=== PATIENT | male | born 1955 | race Caucasian/White ===

== ENCOUNTER 2016-09-29 20:04 | Inpatient (IN) | payer OTHER ==
--- NOTE | 2016-09-29 20:31 | PDOC ---
History of Present Illness <Cherie Cabello - Last Filed: 09/30/16 00:30> - General History Source: Patient Exam Limitations: No Limitations - History of Present Illness Initial Comments: 09/29/16 21:15 PMD: Dr. Greene 61-year-old male with a history of diabetes biba altered mental status. Paramedics states patient's glucose was 43 at the scene. Patient kept repeating that he was looking for his cart this afternoon into this evening. EMS states patient was seen at [facility] spelled this afternoon. Patient is alert and oriented to name/year/date of but keeps asking where his car was parked. Patient is also complaining of left foot pain. Patient is a poor historian. I called [facility] in [place], Dr. [place] states patient was treated for hypoglycemia this afternoon but walked out within 30 minutes of treatment. Patient denies any headache, dizziness, lightheadedness, neck pains, back pains , chest pain, shortness of breath, abdominal pains, urinary symptoms, Pato numbness or tingling sensation. Patient does not recall how his left foot looked like recently but states that is painful on touch. Timing/Duration: unsure Associated Symptoms: denies: chest pain, nausea/vomiting <Nathan Du - Last Filed: 09/30/16 00:57> - General Chief Complaint: Blood Sugar Problem Stated Complaint: HYPOGLYCEMIA Time Seen by Provider: 09/29/16 20:10 Past History <Cherie Cabello - Last Filed: 09/30/16 00:30> - Past Medical History Anemia: No Asthma: No Cancer: No Cardiac Disorders: No CVA: No COPD: No CHF: No Dementia: No Diabetes: Yes GI Disorders: No Disorders: No HTN: Yes Hypercholesterolemia: No Liver Disease: No Seizures: No Thyroid Disease: No - Surgical History Abdominal Surgery: No Appendectomy: No Cardiac Surgery: No Cholecystectomy: No Lung Surgery: No Neurologic Surgery: No Orthopedic Surgery: No - Psycho/Social/Smoking Cessation Hx Suicidal Ideation: No Smoking History: Never smoked Information on smoking cessation initiated: No Hx Alcohol Use: No Drug/Substance Use Hx: No <Nathan Du - Last Filed: 09/30/16 00:57> - Past Medical History Allergies/Adverse Reactions: Allergies Allergy/AdvReac Type Severity Reaction Status Date / Time No Known Allergies Allergy Verified 07/25/13 15:10 Home Medications: Ambulatory Orders Insulin (Levemir) [Levemir Flexpen -] 60 mg SQ ACBK 07/25/13 Review of Systems - Review of Systems Able to Perform ROS?: Yes Comments:: 09/30/16 00:51 Unable to obtain review of system. Altered mental status. Is the patient limited Swedish proficient: No <FlorianCallum hernandezui - Last Filed: 09/30/16 00:57> *Physical Exam - Vital Signs Last Vital Signs Temp Pulse Resp BP Pulse Ox 97.3 F L 99 H 19 181/80 100 09/29/16 20:18 09/29/16 20:18 09/29/16 20:18 09/29/16 20:18 09/29/16 20:18 <Cherie Cabello - Last Filed: 09/30/16 00:30> - Vital Signs Last Vital Signs Temp Pulse Resp BP Pulse Ox 97.3 F L 99 H 19 181/80 100 09/29/16 20:18 09/29/16 20:18 09/29/16 20:18 09/29/16 20:18 09/29/16 20:18 - Physical Exam Comments: 09/30/16 00:52 GENERAL: Well developed, well nourished. Awake and alert. No acute distress. HEENT: Normocephalic, atraumatic. PERRLA, EOMI. No conjunctival pallor. Sclera are non- icteric. Moist mucous membranes. Oropharynx is clear. NECK: Supple. Full ROM. No JVD. Carotid pulses 2+ and symmetric, without bruits. No thyromegaly. No lymphadenopathy. CARDIOVASCULAR: Regular rate and rhythm. No murmurs, rubs, or gallops. Distal pulses are 2+ and symmetric. PULMONARY: No evidence of respiratory distress. Lungs clear to auscultation bilaterally. No wheezing, rales or rhonchi. ABDOMINAL: Soft. Non-tender. Non-distended. No rebound or guarding. No organomegaly. Normoactive bowel sounds. MUSCULOSKELETAL Normal range of motion at all joints. No bony deformities or tenderness. No CVA tenderness. EXTREMITIES: Lgreat toe; eschar with erythematous/edematous to left foot with lymphangitis up ti mid ant lower leg No cyanosis. No clubbing. No edema. No calf tenderness. SKIN: Warm and dry. Normal capillary refill. No rashes. No jaundice. NEUROLOGICAL: Alert, awake, appropriate. Cranial nerves 2-12 intact. No deficits to light touch and temperature in face, upper extremities and lower extremities. No motor deficits in the in face, upper extremities and lower extremities. Normoreflexic in the upper and lower extremities. Normal speech. Toes are down- going bilaterally. Gait is normal without ataxia. PSYCHIATRIC: Cooperative. Good eye contact. Appropriate mood and affect. <Nathan Du - Last Filed: 09/30/16 00:57> Heart Score/ECG Review - History History: Slightly suspicious - Electrocardiogram EKG: Normal - Age Age: >/= 65 - Risk Factors Risk Factors Heart Score: Yes Hx Diabetes Based on the list above the patient has:: 1-2 risk factors <Nathan Du - Last Filed: 09/30/16 00:57> ED Treatment Course - LABORATORY CBC & Chemistry Diagram: 09/29/16 20:12 09/29/16 20:12 - ADDITIONAL ORDERS Additional order review: Laboratory Results 09/29/16 20:12 Sodium 136 Potassium 2.7 L* Chloride 100 Carbon Dioxide 23 Anion Gap 13 BUN 29 H Creatinine 1.1 Creat Clearance w eGFR > 60 Random Glucose 116 H Calcium 8.9 Total Bilirubin 0.4 AST 26 ALT 24 Alkaline Phosphatase 77 Total Protein 7.2 Albumin 3.1 L 09/29/16 20:12 RBC 4.00 MCV 83.2 MCHC 33.0 RDW 13.9 MPV 8.5 Neutrophils % 91.4 H Lymphocytes % 2.6 L Monocytes % 5.9 Eosinophils % 0.0 Basophils % 0.1 - Medications Given in the ED: ED Medications Discontinued Medications Generic Name Dose Route Start Last Admin Trade Name Freq PRN Reason Stop Dose Admin Potassium Chloride 20 meq 09/29/16 21:51 09/29/16 22:24 Potassium Chloride 20 Meq Premix Ivpb - IVPB 09/29/16 21:52 20 meq ONCE ONE Administration <Cherie Cabello - Last Filed: 09/30/16 00:30> - LABORATORY CBC & Chemistry Diagram: 09/29/16 20:12 09/29/16 20:12 - RADIOLOGY Radiograph Interpretation: 09/30/16 00:47 CT head w/o contrast: ?NPH <Nathan Du - Last Filed: 09/30/16 00:57> Medical Decision Making - Medical Decision Making 09/29/16 23:[address] Shantal Clark who is covering for Dr. Greene (via answering service) Awaiting call back 09/30/16 00:12 Second call placed to Dr. Clark (via answering service) Awaiting call back 09/30/16 00:20 Patient's case discussed with Dr. Clark <Cherie Cabello - Last Filed: 09/30/16 00:30> *DC/Admit/Observation/Transfer <Cherie Cabello - Last Filed: 09/30/16 00:30> - Discharge Dispostion Admit: Yes <Nathan Du - Last Filed: 09/30/16 00:57> Diagnosis at time of Disposition: Hypokalemia, Hypoglycemia, Normal pressure hydrocephalus Altered mental status Qualifiers: Altered mental status type: disorientation Qualified Code(s): R41.0 - Disorientation, unspecified - Discharge Dispostion Condition at time of disposition: Guarded - Referrals Referrals: Karyna Greene [Primary Care Provider] - Progress Note - Progress Note Progress Note: 0015hrs: Spoke to Dr. Clark/covering for Dr. Harper who admits for Dr. Leonardo Clark will admit 0055hrs: Spoke to Dr. Peres/ aware of CT head ?NPH/ as per Dr. Peres, no need to call NS at this time <Nathan Du - Last Filed: 09/30/16 00:57>
[2016-09-29 21:26] LABS: BASOPHIL 0.1 % (0-2.0); MCH 27.5 pg (25.7-33.7); MEAN CELL VOLUME 83.2 fl (80-96); MEAN PLT VOLUME 8.5 fl (7.5-11.1); NEUTROPHILS 91.4 % (42.8-82.8); PLATELET COUNT 157 K/MM3 (134-434); RDW 13.9 % (11.9-15.9); WHITE BLOOD COUNT 14.1 K/mm3 (4.0-10.0)
[2016-09-29 21:44] LABS: ALBUMIN 3.1 g/dl (3.4-5.0); ANION GAP 13 (8-16); CALCIUM 8.9 mg/dL (8.5-10.1); CO2 23 mmol/L (21-32); CREATININE 1.1 mg/dL (0.7-1.3); GLUCOSE,RANDOM 116 mg/dL (74-106); SGOT/AST 26 U/L (15-37); SGPT/ALT 24 U/L (12-78)
[2016-09-29 21:46] LABS: ALK PHOS 77 U/L (45-117); BILIRUBIN,TOTAL 0.4 mg/dL (0.2-1.0); TOT PROT 7.2 g/dl (6.4-8.2)
[2016-09-29] MEDS ORDERED: POTASSIUM CHLORIDE 20 MEQ PREMIX IVPB 100 ML IVPB ONE (21:51)
[2016-09-29] MEDS ORDERED: KCL 10 MEQ IVPB 200 ML IVPB ONE (22:10)
[2016-09-29] MEDS ORDERED: SODIUM CHLORIDE 1,000 ML IV SCH (22:30)
[2016-09-29] MEDS ORDERED: D5-1/2NS+20 MEQ KCL - 1,000 ML IV SCH (23:15)
[2016-09-29] MEDS ORDERED: DEXTROSE 50%-WATER - 25 GM/50 ML VIAL IVPUSH PRN (23:19)
[2016-09-29] MEDS ORDERED: VANCOMYCIN 1 GRAM (PRE-DOCKED) 250 ML IVPB ONE (23:45)
--- NOTE | 2016-09-30 00:33 | PDOC ---
*Physical Exam - Vital Signs Last Vital Signs Temp Pulse Resp BP Pulse Ox 97.3 F L 99 H 19 181/80 100 09/29/16 20:18 09/29/16 20:18 09/29/16 20:18 09/29/16 20:18 09/29/16 20:18 - Physical Exam Comments: 09/30/16 00:33 The patient was examined by [DELIA Du] under my direct supervision. I personally evaluated the patient. I concur with the above findings and the plan of care. ED Treatment Course - LABORATORY CBC & Chemistry Diagram: 09/29/16 20:12 09/29/16 20:12 - ADDITIONAL ORDERS Additional order review: Laboratory Results 09/29/16 09/29/16 20:12 20:12 Sodium 136 Potassium 2.7 L* Chloride 100 Carbon Dioxide 23 Anion Gap 13 BUN 29 H Creatinine 1.1 Creat Clearance w eGFR > 60 Random Glucose 116 H Calcium 8.9 Total Bilirubin 0.4 AST 26 ALT 24 Alkaline Phosphatase 77 Troponin I < 0.02 Total Protein 7.2 Albumin 3.1 L 09/29/16 20:12 RBC 4.00 MCV 83.2 MCHC 33.0 RDW 13.9 MPV 8.5 Neutrophils % 91.4 H Lymphocytes % 2.6 L Monocytes % 5.9 Eosinophils % 0.0 Basophils % 0.1 - Medications Given in the ED: ED Medications Discontinued Medications Generic Name Dose Route Start Last Admin Trade Name Freq PRN Reason Stop Dose Admin Sodium Chloride 1,000 mls @ 150 mls/hr 09/29/16 22:30 09/29/16 22:24 Normal Saline - IV 150 mls/hr ASDIR MARNIE Administration Potassium Chloride 20 meq 09/29/16 21:51 09/29/16 22:24 Potassium Chloride 20 Meq Premix Ivpb - IVPB 09/29/16 21:52 20 meq ONCE ONE Administration *DC/Admit/Observation/Transfer Diagnosis at time of Disposition: Hypokalemia, Hypoglycemia Altered mental status Qualifiers: Altered mental status type: disorientation Qualified Code(s): R41.0 - Disorientation, unspecified - Discharge Dispostion Condition at time of disposition: Guarded - Referrals Referrals: Karyna Greene [Primary Care Provider] - - Patient Instructions - Post Discharge Activity
[2016-09-30 00:41] LABS: URINE APPEARANCE CLEAR; URINE BILIRUBIN NEGATIVE (NEGATIVE); URINE COLOR LTYELLOW; URINE GLUCOSE (UA) 1+ (NEGATIVE); URINE KETONE NEGATIVE (NEGATIVE); URINE LEUK ESTERASE NEGATIVE (NEGATIVE); URINE NITRITE NEGATIVE (NEGATIVE); URINE UROBILINOGEN NEGATIVE E.U./dl (0.2-1.0)
[2016-09-30] MEDS ORDERED: VANCOMYCIN 1 GRAM (PRE-DOCKED) 250 ML IVPB ONE (00:41)
[2016-09-30 00:42] LABS: URINE BLOOD 1+ (NEGATIVE); URINE PROTEIN 1+ (NEGATIVE)
[2016-09-30 00:48] LABS: URINE HYALINE CAST 7 /lpf; URINE MUCUS FEW; URINE RBC 2 /hpf (0-3); URINE WBC 1 /hpf (3-5)
[2016-09-30] MEDS ORDERED: D5-1/2NS+20 MEQ KCL - 1,000 ML IV SCH (01:15)
[2016-09-30] MEDS ORDERED: PIPERACILLIN/TAZOB 4.5 GM 100 ML IVPB SCH ×2 (02:00→11:45)
[2016-09-30 03:01] LABS: TROPONIN I < 0.02 ng/ml (0.00-0.05)
[2016-09-30] MEDS ORDERED: PIPERACILLIN/TAZOB 4.5 GM 100 ML IVPB ONE ×2 (03:52→11:38)
[2016-09-30] MEDS: PIPERACILLIN/TAZOB 4.5 GM 100 ML IVPB SCH ×2 (04:06→12:22)
[2016-09-30 06:00] LABS: BASOPHIL 0.5 % (0-2.0); EOSINOPHIL 0.1 % (0-4.5); MCH 27.5 pg (25.7-33.7); MCHC 32.8 g/dl (32.0-35.9); MEAN CELL VOLUME 83.9 fl (80-96); MEAN PLT VOLUME 7.8 fl (7.5-11.1); NEUTROPHILS 87.6 % (42.8-82.8); PLATELET COUNT 188 K/MM3 (134-434); RDW 14.1 % (11.9-15.9); WHITE BLOOD COUNT 12.7 K/mm3 (4.0-10.0)
[2016-09-30 06:25] LABS: ALBUMIN 2.8 g/dl (3.4-5.0); ANION GAP 9 (8-16); BILIRUBIN,TOTAL 0.7 mg/dL (0.2-1.0); CALCIUM 8.2 mg/dL (8.5-10.1); CO2 28 mmol/L (21-32); CREATININE 0.9 mg/dL (0.7-1.3); GLUCOSE,RANDOM 272 mg/dL (74-106); SGOT/AST 21 U/L (15-37); SGPT/ALT 22 U/L (12-78); TOT PROT 6.8 g/dl (6.4-8.2)
[2016-09-30 06:28] LABS: ALK PHOS 77 U/L (45-117)
[2016-09-30] MEDS: INSULIN SLIDING SCALE (NOVOLOG) 1 VIAL SQ SCH ×4 (07:00→23:13)
--- NOTE | 2016-09-30 08:11 | PN ---
Progress Note (short form) - Note Progress Note: NEUROSURGERY CONSULT DICTATED H/o IDDM brought to ED for altered mental status. Paramedics reports FS 43 at the scene. Patient kept repeating that he was looking for his car yesterday morning. EMS states patient was seen at [facility] earlier and left after he was "doublecrossed" by the police who left him there over 1/2 hour. Stated that they were going to take him andrea afterwards. Complaining of left foot pain. Patient denies any fever, chill, recent infection, headache, N/V, dizziness, lightheadedness, neck pains, back pains, chest pain, shortness of breath, urinary symptom. PE: Tmax 98.4, VSS HEENT- NC/AT; neck- supple; cor- RR; Lungs- CTA B; Abd- beingn, + BS; Ext- chronic venous changes distal LE B; redness left calf/jose/ankle with mild edema A/A/Ox; memory minimally impaired; CN- intact; Motor 5/5 without drift; Sensation- decreased B feet vibration; DTR- hyporeflexia B UE/LE; toes downgoing Head CT- atrophy, mild- ventriculomegaly with dilatation of lateral and third ventricles and some temporal horns; mild periventricular small vessel dz; no fx , no bleed WBC 12.7, Na 124, Cr 0.9, BUN 19 UA 2 RBC 1 WBC leukocyte esterase negative Hgb A1C pending Blood culture pending DM with peripheral neuropathy MRI to r/o NPH (doubtful) or ischemia DM, r/o L LE cellulitis, on iv abx already Doppler L LE r/o DVT
--- NOTE | 2016-09-30 08:52 | CON.NEURO ---
Consult - History of Present Illness History of Present Illness: 61-year-old male with a history of diabetes biba altered mental status. Paramedics states patient's glucose was 43 at the scene. Patient kept repeating that he was looking for his car ( 09/29/16) Patient is alert and oriented to name/year/date of but keeps asking where his car was parked. Today , states double crossed by [facility], kept him longer than needed--left AMA, attempted to walk home, and admits was tired a took nap on street ?--- was brought in [facility]. 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 CT HD : Impression. No evidence of acute intracranial hemorrhage, edema, midline shift, mass effect, or skull fracture. No CT evidence of acute territorial infarction. - History Source History Provided By: Patient - Alcohol/Substance Use Hx Alcohol Use: No - Smoking History Smoking history: Never smoked Home Medications - Allergies Allergies/Adverse Reactions: Allergies Allergy/AdvReac Type Severity Reaction Status Date / Time No Known Allergies Allergy Verified 07/25/13 15:10 - Home Medications Home Medications: Ambulatory Orders Insulin (Levemir) [Levemir Flexpen -] 60 mg SQ ACBK 07/25/13 Physical Exam-Neuro Vital Signs: Vital Signs Temperature 98.4 F 09/30/16 06:12 Pulse Rate 82 09/30/16 06:57 Respiratory Rate 18 09/30/16 06:57 Blood Pressure 132/73 09/30/16 06:57 O2 Sat by Pulse Oximetry (%) 98 09/30/16 06:57 Constitutional: Yes: Well Nourished Labs: CBC, BMP 09/30/16 05:26 09/30/16 05:26 - Neuro Exam Level Of Consciousness: Yes: Alert (awake and oriented to perosn, place, address ; ? somewhat paranoid; EOMI, VFF, no astrerixis, no neck stiffness, no focal weakness, reflexes symmetric ) NIH Stroke Scale - Total Score NIH Stroke Scale Score: 0 Imaging - Results Cat Scan: Report Reviewed, Image Reviewed Problem List - Problems (1) Altered mental status Code(s): R41.82 - ALTERED MENTAL STATUS, UNSPECIFIED Qualifiers: Altered mental status type: disorientation Qualified Code(s): R41.0 - Disorientation, unspecified (2) Hypoglycemia Code(s): E16.2 - HYPOGLYCEMIA, UNSPECIFIED Assessment/Plan 61-year-old male with a history of diabetes biba altered mental status. intermittent confusion , and unable to find his car, which is not typical. ? amnestic event ( transient global amnesia--though appears to have some memory of yesterday ) vs TIA vs metabolic . doubt seizure, no signs meningitis. check MRI BRAIN FU labs, a1c, ESR, TODD, TSH FU tox Dr Mason
--- NOTE | 2016-09-30 09:51 | CONS ---
DATE OF CONSULTATION: 09/30/2016 REQUESTING PHYSICIAN: Shantal Clark MD CONSULTING PHYSICIAN: Beto Merida MD, Neurosurgery. CHIEF COMPLAINT: Ventriculomegaly. HISTORY OF PRESENT ILLNESS: The patient is a 61-year-old right-handed male with history of insulin-dependent diabetes, who was initially brought by the police to [facility] Emergency Room yesterday. He stated that he got out of the house yesterday and could not find his car. He called the police who brought him to the hospital for evaluation. He was initially found to be hypoglycemic and was treated there. The patient stated that the police promised to take him home in half an hour but left him there. He stated that he was "double-crossed." He stated that he lived far away from [facility]. He had requested to be there in the first place initially. He was subsequently brought by ambulance to [facility], as he was continuing to look for his car. Here, he denies any headache, nausea, vomiting, seizure activities, prior fevers or chills, or recent infections. He has no chest pain or shortness of breath. His memory was spotty at times, was generally coherent. PAST MEDICAL HISTORY: Significant for diabetes. CURRENT MEDICATIONS: Include Zosyn, subcutaneous heparin, insulin. ALLERGIES: There are no known drug allergies. FAMILY HISTORY: Noncontributory. 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 He does not smoke and does drink alcohol socially. He lives at home alone. REVIEW OF SYSTEMS: Otherwise negative for other constitutional, head and neck, cardiovascular, pulmonary, gastrointestinal, genitourinary, endocrinological, neurological, oncological, psychological problems except for the above. PHYSICAL EXAMINATION: Vital Signs: Temperature is 98.4, blood pressure is 132/72 with pulse rate of 82. HEENT: Examination shows him to be normocephalic, atraumatic, anicteric. Neck: Supple with no lymphadenopathy. No carotid bruit. Coronary: Examination demonstrated a regular rhythm. Lungs: Clear bilaterally. Abdomen: Benign. Extremities: Shows chronic venous changes of the distal bilateral lower extremities. He has slight redness of his left calf and jose as well as down to the ankle and foot. There is mild edema associated. There is no acute fracture that could be palpated. He has negative Homans sign. Neurologic: He is awake, alert, oriented x3. His memory is occasionally spotty but generally intact. Cranial nerve examination is intact 2-12. Motor examination shows 5/5 strength of the bilateral upper and lower extremities without drift. Sensory examination is intact to light touch. Deep tendon reflexes are hyporeflexic throughout. There is no pathologic long-track sign. Gait is not tested for safety reasons. LABORATORY EXAMINATION: Examination shows white blood cell count of 12,700; initially was 14,100. Hemoglobin is 10.7, and platelet count is 188. Serum sodium is 134 and potassium 3.5. Previously, potassium was 2.7, and he received some potassium replacement. BUN is 19 and creatinine 0.9. Glucose is 272. Hemoglobin A1c is pending. Urinalysis shows 2 RBCs and 1 WBC, with negative leukocyte esterase. CT scan of the head demonstrated [id number] ventriculomegaly with some small temporal horns. There is no acute hemorrhage. There is mild cerebral atrophy. There is mild periventricular small vessel disease. IMPRESSION: 1. Insulin-dependent diabetes with probable diabetic neuropathy. 2. Rule out left lower leg cellulitis versus deep vein thrombosis. 3. Rule out early hydrocephalus, though doubtful. RECOMMENDATIONS: The patient presents with altered mental status. His glucose was reportedly very low initially. The patient denies any headache, nausea, vomiting, or any urinary incontinence at this time. He does have some occasional urinary problems with occasional "accidents." His memory is intact at this time, but he was reportedly confused earlier yesterday. MRI of the brain is recommended to rule out ischemia or transependymal CSF flow. Blood culture has already been drawn, and he should be ruled out for bacteremia and left lower extremity cellulitis. A Doppler of the lower extremity is also recommended. The above was discussed with the patient at bedside. He is already on IV antibiotic coverage. All questions were answered at the bedside. BETO MERIDA M.D. [id number]
[2016-09-30] MEDS ORDERED: VANCOMYCIN 1,000 MG in DEXTROSE 5%-WATER - 250 ML IVPB SCH (10:00)
[2016-09-30] MEDS: HEPARIN NA (PORCINE) 5,000 UNITS/ML 1ML VIAL SQ SCH ×2 (11:57→23:06)
--- NOTE | 2016-09-30 13:03 | PN ---
Progress Note (short form) - Note Progress Note: ID consult dictated imp/reccd diabetic foot infection will chronic ulcer and cellulitis osteomyelitis vanco/zosyn esr/crp mri podiatry recently at [facility]??- would gilma we get records- patient is poor historian poor glucose control hgba1c is 11
--- NOTE | 2016-09-30 13:47 | CONS ---
DATE OF CONSULTATION: 09/30/2016 INFECTIOUS DISEASE CONSULTATION REQUESTING PHYSICIAN: Shantal Clark MD HISTORY OF PRESENT ILLNESS: This is a 61-year-old man with a past medical history of diabetes since 2004. He takes insulin. He was brought to the hospital with hypoglycemia. He apparently was looking for his car which he could not locate outside of his apartment. He was taken he states by the police to [facility]. Apparently he was hypoglycemic there and walked out after 30 minutes of treatment. He was then brought to [facility] where he was awake and alert. He denies any fever or chills, nausea or vomiting. He states he left [facility] because he was told he would only be there for 30 minutes and he they kept him there longer. He was noted in the ER to have a left foot ulcer with surrounding erythema. He had blood cultures drawn and was given vancomycin and Zosyn. He was seen by neurology and neurosurgery for change in mental status. I am asked to see him for further recommendations. He is resting comfortably. He denies any fever or chills. He denies any cough. He denies any weight loss and he lives alone. PAST MEDICAL HISTORY: Is notable for diabetes since 2004. He reports that he recently lost his Medicaid and was unable to follow up with his doctor. He also reports that he was recently hospitalized at [facility] for several weeks, he thinks for his diabetes. He has had 1 followup visit with his PCP since discharge and his Medicaid has been reinstated he says. PAST SURGICAL HISTORY: Notable for amputation of 2 toes on the right foot at [facility] in 2004. He is even able to recall the surgeon. He denies any other surgeries. ALLERGIES: No known drug allergies. MEDICATIONS AN OUTPATIENT: He takes Levemir at home. 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 He lives alone. He has a sister in [place] and a brother in [facility]. He denies any cigarette or substance use. REVIEW OF SYSTEMS: He denies weight loss, nausea, vomiting, diarrhea or dysuria. Regarding the left foot ulcer, he thinks he has had the ulcer for at least 8 months. He denies any drainage from the site and it is unclear how he has been taking care of it. PHYSICAL EXAMINATION; Vital Signs: Temperature 97.8, pulse 66, blood pressure 122/63, respiratory rate 18, O2 saturation is 98% on room air. HEENT: Normocephalic. Eyes are anicteric. Neck: Supple. Lungs: Clear to auscultation. Heart: Regular rate and rhythm. Abdomen: Soft. Extremities: Right foot has a necrotic ulcer on the 1st toe. He has surrounding erythema extending up on the medial side about care home up his foot toward the ankle. On the left foot he is missing 2 toes and he has a dry eschar on the plantar surface. Pulses are diminished in bilateral feet. LABORATORY DATA: White count of 14.1 on admission and this morning was 12.7, hemoglobin 10.7. BUN 19, creatinine 0.8. Hemoglobin A1c was 11. Glucose 272. Liver function tests are normal. Urinalysis is notable for blood, glucose and protein, 1 white cell, leukocyte esterase negative. Blood cultures are pending. Duplex of his legs is negative for DVT. Head CT is notable for no acute intracranial event. Chest x-ray shows no acute pathology. X-ray of the left foot is notable for destructive changes to the distal phalanx with pathologic fracture and possible septic arthritis. IMPRESSION AND RECOMMENDATIONS: In summary this is a 61-year-old diabetic man admitted with a diabetic foot infection, appears quite chronic, osteomyelitis possible septic arthritis. Will obtain an MRI of the foot, will obtain a podiatry consult, check sedimentation rate and CRP. Given the fact that he was recently hospitalized at [facility] per the patient, I would suggest we try to obtain records. As well would treat him with vancomycin and Zosyn pending further workup. CORTNEY SUERO M.D. [id number]
--- NOTE | 2016-09-30 14:03 | HP ---
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 Paramedics states patient's glucose was 43 at the scene. Patient kept repeating that he was looking for his cart this afternoon into this evening. EMS states patient was seen at [facility] in [place] spelled this afternoon. Patient is alert and oriented to name/year/date of but keeps asking where his car was parked. Patient is also complaining of left foot pain. Patient is a poor historian. I called [facility] in [place], Dr. [place] states patient was treated for hypoglycemia this afternoon but walked out within 30 minutes of treatment. Patient denies any headache, dizziness, lightheadedness, neck pains, back pains , chest pain, shortness of breath, abdominal pains, urinary symptoms, Pato numbness or tingling sensation. Patient does not recall how his left foot looked like recently but states that is painful on touch. Timing/Duration: unsure Associated Symptoms: denies: chest pain, nausea/vomiting per patient he was in [facility] for his low sugar and then he was discharged and looking for his car could not find it and called police who took him to [facility] from where he left AMA and he decided to walk him on the way he felt tired and decided to nap in baseball field, he said he kept blacking out when he was walking home in ER k 2.7 now corrected to 3.5 glucose was noted elevated and found WBC 11.2 in ER got iv abx seen by neuro and ID History Source: Patient, Medical Record - Smoking History Smoking history: Never smoked - Alcohol/Substance Use Hx Alcohol Use: No Home Medications - Allergies Allergies/Adverse Reactions: Allergies Allergy/AdvReac Type Severity Reaction Status Date / Time No Known Allergies Allergy Verified 07/25/13 15:10 - Home Medications Home Medications: Ambulatory Orders Insulin (Levemir) [Levemir Flexpen -] 60 mg SQ ACBK 07/25/13 Review of Systems Findings/Remarks: awake alert no distress able to tell me his name and address and where he parked his car - Review of Systems Constitutional: reports: No Symptoms Eyes: reports: No Symptoms HENT: reports: No Symptoms, Ocular Prosthesis Cardiovascular: reports: No Symptoms Physical Examination Vital Signs: Vital Signs Temperature 97.8 F 06/30/17 11:14 Pulse Rate 66 09/30/16 11:14 Respiratory Rate 18 09/30/16 11:14 Blood Pressure 122/63 09/30/16 11:14 O2 Sat by Pulse Oximetry (%) 97 09/30/16 11:14 Constitutional: Yes: Calm Neck: Yes: Trachea Midline Cardiovascular: Yes: Regular Rate and Rhythm, S1, S2 Respiratory: Yes: CTA Bilaterally Gastrointestinal: Yes: Normal Bowel Sounds, Soft Psychiatric: Yes: Alert, Oriented Labs: CBC, BMP 09/30/16 05:26 09/30/16 05:26 Imaging - Results Cat Scan: Report Reviewed Ultrasound: Report Reviewed Problem List - Problems (1) Altered mental status Assessment/Plan: maybe sec to toxic metabolic cultures pending iv abx MRI brain DVT ppx Code(s): R41.82 - ALTERED MENTAL STATUS, UNSPECIFIED Qualifiers: Altered mental status type: disorientation Qualified Code(s): R41.0 - Disorientation, unspecified (2) Hypokalemia Assessment/Plan: replted Code(s): E87.6 - HYPOKALEMIA (3) Diabetes type 2, uncontrolled Assessment/Plan: hga1c 11 insulin ENdo eval podiarty to see feet check lipi panel proteinuria sarah start low dose acei and monitor renal function Code(s): E11.65 - TYPE 2 DIABETES MELLITUS WITH HYPERGLYCEMIA Qualifiers: Diabetes mellitus complication status: with neurologic complications
--- NOTE | 2016-09-30 16:07 | CONSULT ---
Consult - text type - Consultation Consultation Note: Podiatry Consultation: 61 year old IDDM M presents BIBA for altered mental status. Patient has a strong history of non-compliance and recently left [facility]. He states that he has a L great toe ulcer for over 6 months, did not seek treatment for the wound. Denies F/V/N/C/SOB/CP. AFebrile, VSS. IAN: L foot: pedal pulses non-palpable, TG wnl, CFT absent to distal tuft of L great toe. There is a large necrotic ulcer medial aspect of left great toe with palpable bone, mild cellulitis to the 1st MTPJ, seropurulent drainage present, no soft tissue crepitus, no stella purulence. No tenderness to palpation. Dusky appearance of distal tuft of great toe. WBC: 12.7 Blood Cx: pending L foot XR: osteomyelitis distal phalanx Imp: 61 year old IDDM M with L great toe DM ulcer and osteomyelitis 1. IV abx per ID 2. DSD L foot 3. Recommend PVRs to assess peripheral circulation 4. I have strongly recommended amputation of the hallux, it is not salvageable. The patient is adamantly refusing amputation at this point. I discussed risks of worsening infection, progressing infection, loss of limb, sepsis and even loss of life. He understands this and does not want amputation. May need psychiatry to evaluate for competency. 5. Signing off the case, thank you for the courtesy of this consultation. Remedios Whitten DPM
[2016-09-30] MEDS ORDERED: INSULIN (NOVOLOG) ASPART 100 UNITS/ML 10ML VIAL ONE (16:28)
--- NOTE | 2016-09-30 16:32 | HOSP ---
Physical Examination Vital Signs: Vital Signs Temperature 97.8 F 09/30/16 14:45 Pulse Rate 74 09/30/16 14:45 Respiratory Rate 18 09/30/16 14:45 Blood Pressure 141/72 09/30/16 14:45 O2 Sat by Pulse Oximetry (%) 97 09/30/16 11:14 Labs: CBC, BMP 09/30/16 05:26 09/30/16 05:26 Hospitalist Encounter Assessment: Patient is A 61 year old male with a PMHx of DMII who was BIBA for AMS and was found to have glucose level of 43. Patient was complaining of a chronic left great toe ulcer for the last 6 months but has not seek treatment for his wound. Patient is a noncompliant patient and uncooperative. I was called to assess patient for an IV infiltrate on patient's left hand. Patient's dorsal aspect of the left wrist was erythemetous with no warmth and nontender upon palpation. Recommendation: -Warm packs 20 minutes BID for two days . -Did not repeat blood cultures as patient received IV antibiotics -Will notify PCP Visit type - Emergency Visit Emergency Visit: Yes ED Registration Date: 09/30/16 Care time: The patient presented to the Emergency Department on the above date and was hospitalized for further evaluation of their emergent condition. - New Patient This patient is new to me today: Yes Date on this admission: 09/30/16 - Critical Care Critical Care patient: No
--- NOTE | 2016-09-30 16:44 | CONSULT ---
Consult Consult Specialty:: Vascular Surgery - History of Present Illness History of Present Illness: 61 year old diabetic with prior amputation of 2 toes in right foot 10 years ago. He now has a non-healing wound of the left 1st toe and has been advised to have amputation by Podiatry. Patient denies history of vascular disease. He has no pain. States he walks a lot. - History Source History Provided By: Medical Record Limitations to Obtaining History: Poor Historian - Past Medical History Endocrine: Yes: Diabetes Mellitus - Alcohol/Substance Use Hx Alcohol Use: No - Smoking History Smoking history: Never smoked Home Medications - Allergies Allergies/Adverse Reactions: Allergies Allergy/AdvReac Type Severity Reaction Status Date / Time No Known Allergies Allergy Verified 07/25/13 15:10 - Home Medications Home Medications: Ambulatory Orders Insulin (Levemir) [Levemir Flexpen -] 60 mg SQ ACBK 07/25/13 Physical Exam Vital Signs: Vital Signs Temperature 97.8 F 09/30/16 14:45 Pulse Rate 74 09/30/16 14:45 Respiratory Rate 18 09/30/16 14:45 Blood Pressure 141/72 09/30/16 14:45 O2 Sat by Pulse Oximetry (%) 97 09/30/16 11:14 Constitutional: Yes: No Distress Eyes: Yes: WNL HENT: Yes: WNL Neck: Yes: WNL Cardiovascular: Yes: Regular Rate and Rhythm Respiratory: Yes: CTA Bilaterally Gastrointestinal: Yes: Soft Extremities: Yes: Amputation (right 2nd, 3rd toes), Cool, Delayed Capillary Refill, Erythema (Right forefoot) Edema: Yes Edema: LLE: Trace, RLE: Trace Peripheral Pulses WNL: No (ABsent popliteal and pedal bilaterally) Integumentary: Yes: Other (Plantar wound left 1st toe with necrotic skin.) Labs: CBC, BMP 09/30/16 05:26 09/30/16 05:26 Problem List - Problems (1) 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, without long-term current use of insulin Assessment/Plan: Left 1st toe wound with local cellulitis. Distal arterial flow compromised. Will need evaluation before toe amputation. Code(s): E08.52 - DIAB DUE TO UNDRL COND W DIABETIC PRPH ANGIOPATH W GANGRENE
--- NOTE | 2016-09-30 17:13 | EKG ---
Test Reason : Blood Pressure : / mmHG Vent. Rate : 081 BPM Atrial Rate : 081 BPM P-R Int : 148 ms QRS Dur : 102 ms QT Int : 424 ms P-R-T Axes : 061 -15 087 degrees QTc Int : 492 ms NORMAL SINUS RHYTHM POSSIBLE LEFT ATRIAL ENLARGEMENT ANTERIOR INFARCT , AGE UNDETERMINED ABNORMAL ECG NO PREVIOUS ECGS AVAILABLE Confirmed by MD YANDEL, RUTHY ([id number]) on 09/30/2016 5:13:30 PM Referred By: Confirmed By:RUTHY HUMPHRIES MD
[2016-09-30] MEDS: PIPERACILLIN/TAZOB 3.375 GM/50 ML PRE-DOCKED IVPB SCH (17:22)
[2016-09-30 18:24] VITALS: BMI 21.8
[2016-09-30] MEDS: INSULIN DETEMIR 100 UNITS/ML MDV SQ SCH (23:07)
[2016-09-30] MEDS: VANCOMYCIN 1 GRAM (PRE-DOCKED) 1,000 MG/250 ML BAG IVPB SCH (23:14)
[2016-10-01] MEDS: PIPERACILLIN/TAZOB 3.375 GM/50 ML PRE-DOCKED IVPB SCH ×3 (02:38→17:52)
[2016-10-01] MEDS: INSULIN SLIDING SCALE (NOVOLOG) 1 VIAL SQ SCH ×4 (06:31→22:01)
[2016-10-01 07:40] LABS: BASOPHIL 0.3 % (0-2.0); EOSINOPHIL 0.2 % (0-4.5); MEAN CELL VOLUME 82.5 fl (80-96); MEAN PLT VOLUME 7.8 fl (7.5-11.1); NEUTROPHILS 80.8 % (42.8-82.8); PLATELET COUNT 170 K/MM3 (134-434); RDW 13.4 % (11.9-15.9); WHITE BLOOD COUNT 8.4 K/mm3 (4.0-10.0)
[2016-10-01 07:57] LABS: ALBUMIN 2.4 g/dl (3.4-5.0); ANION GAP 9 (8-16); BILIRUBIN,TOTAL 0.5 mg/dL (0.2-1.0); CALCIUM 8.3 mg/dL (8.5-10.1); CO2 26 mmol/L (21-32); CREATININE 0.8 mg/dL (0.7-1.3); GLUCOSE,RANDOM 144 mg/dL (74-106); SGOT/AST 18 U/L (15-37); SGPT/ALT 19 U/L (12-78); TOT PROT 6.1 g/dl (6.4-8.2)
[2016-10-01 08:03] LABS: ALK PHOS 68 U/L (45-117); C-REACTIVE PROTEIN 11.9 MG/DL (0.00-0.3)
[2016-10-01 08:13] LABS: TROPONIN I < 0.02 ng/ml (0.00-0.05)
--- NOTE | 2016-10-01 08:29 | PN ---
Progress Note, Physician History of Present Illness: AWAKE IN BED - Current Medication List Current Medications: Active Medications Heparin Sodium (Porcine) (Heparin -) 5,000 unit SQ BID [facility] Last Admin: 09/30/16 23:06 Dose: 5,000 unit Insulin Aspart (Novolog Vial Sliding Scale -) 1 vial SQ ACHS MARNIE PRN Reason: Protocol Last Admin: 10/01/16 06:31 Dose: Not Given Insulin Detemir (Levemir Vial) 25 units SQ HS [facility] Last Admin: 09/30/16 23:07 Dose: 25 units Piperacillin Sod/Tazobactam Sod (Zosyn 3.375gm Ivpb (Pre-Docked)) 3.375 gm IVPB Q8H-IV MARNIE PRN Reason: Protocol Last Admin: 10/01/16 02:38 Dose: 3.375 gm Vancomycin HCl (Vancomycin (Pre-Docked)) 1,000 mg IVPB BID MARNIE PRN Reason: Protocol Last Admin: 09/30/16 23:14 Dose: 1,000 mg - Objective Vital Signs: Vital Signs Temperature 98.4 F 10/01/16 06:14 Pulse Rate 74 10/01/16 06:14 Respiratory Rate 18 10/01/16 06:14 Blood Pressure 112/61 10/01/16 06:14 O2 Sat by Pulse Oximetry (%) 98 09/30/16 21:00 Cardiovascular: Yes: Murmur, S1, S2 Respiratory: Yes: Regular, CTA Bilaterally Gastrointestinal: Yes: Normal Bowel Sounds, Soft. No: Tenderness Extremities: Yes: Cool (LEFT GREAT TOE--WITH ERYTHEMA --ULCER WITH NECROSIS ON PLANTAR ASPECT) Edema: Yes Labs: CBC, BMP 10/01/16 06:00 10/01/16 06:00 Problem List - Problems (1) Foot ulcer Assessment/Plan: PER VASCULAR/PODIATRY IV ABX Code(s): L97.509 - NON-PRESSURE CHRONIC ULCER OTH PRT UNSP FOOT W UNSP SEVERITY (2) Osteomyelitis Assessment/Plan: IV ABX MONITOR Code(s): M86.9 - OSTEOMYELITIS, UNSPECIFIED (3) Altered mental status Assessment/Plan: NEURO ON CASE MAYBE TOXIC/METABOLIC Code(s): R41.82 - ALTERED MENTAL STATUS, UNSPECIFIED Qualifiers: Altered mental status type: disorientation Qualified Code(s): R41.0 - Disorientation, unspecified (4) 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, without long-term current use of insulin Assessment/Plan: BGM ENDO Code(s): E08.52 - DIAB DUE TO UNDRL COND W DIABETIC PRPH ANGIOPATH W GANGRENE (5) Normal pressure hydrocephalus Assessment/Plan: NEURO/NS Code(s): G91.2 - (IDIOPATHIC) NORMAL PRESSURE HYDROCEPHALUS
[2016-10-01 08:47] LABS: CHOLESTEROL 130 mg/dL (50-200); LDL CHOLESTEROL (ONLY SJRH) 86 mg/dL (5-100)
[2016-10-01] MEDS: VANCOMYCIN 1 GRAM (PRE-DOCKED) 1,000 MG/250 ML BAG IVPB SCH ×2 (10:40→22:01)
[2016-10-01] MEDS: HEPARIN NA (PORCINE) 5,000 UNITS/ML 1ML VIAL SQ SCH ×2 (10:41→22:00)
--- NOTE | 2016-10-01 10:48 | PN ---
Progress Note (short form) - Note Progress Note: NEUROSURGERY NO H/A, N/V Vascular input noted PE: Tmax 98.4, VSS HEENT- NC/AT; neck- supple; cor- RR; Lungs- CTA B; Abd- beingn, + BS; Ext- chronic venous changes distal LE B; redness left calf/jose/ankle less marked A/A/Ox2; memory mildly impaired; CN- intact; Motor 5/5 without drift; Sensation - decreased B feet vibration; DTR- hyporeflexia B UE/LE; toes downgoing Head CT- atrophy, mild- ventriculomegaly with dilatation of lateral and third ventricles and some temporal horns; mild periventricular small vessel dz; no fx , no bleed Brain MRI-moderate atrophy, no acute stroke Blood culture negative x 24 hours LE Duplex- L > R LE atherosclerotic dz PAD DM with peripheral neuropathy
[2016-10-01] MEDS ORDERED: PT OWN MED DRAWER 7, Y5N ONE (18:15)
[2016-10-01] MEDS ORDERED: INSULIN (NOVOLOG MIX 70/30) 100 UNITS/ML MDV SQ ONE (18:16)
[2016-10-01] MEDS ORDERED: INSULIN DETEMIR 100 UNITS/ML MDV SQ ONE (18:16)
[2016-10-01] MEDS ORDERED: INSULIN (NOVOLOG) ASPART 100 UNITS/ML 10ML VIAL ONE (20:52)
[2016-10-01] MEDS: INSULIN DETEMIR 100 UNITS/ML MDV SQ SCH (22:01)
[2016-10-02] MEDS: PIPERACILLIN/TAZOB 3.375 GM/50 ML PRE-DOCKED IVPB SCH ×3 (01:19→17:12)
[2016-10-02] MEDS: INSULIN SLIDING SCALE (NOVOLOG) 1 VIAL SQ SCH ×4 (06:14→22:11)
--- NOTE | 2016-10-02 09:15 | PN ---
Progress Note, Physician History of Present Illness: AWAKE IN BED - Current Medication List Current Medications: Active Medications Heparin Sodium (Porcine) (Heparin -) 5,000 unit SQ BID [facility] Last Admin: 10/01/16 22:00 Dose: 5,000 unit Insulin Aspart (Novolog Vial Sliding Scale -) 1 vial SQ ACHS MARNIE PRN Reason: Protocol Last Admin: 10/02/16 06:14 Dose: Not Given Insulin Detemir (Levemir Vial) 25 units SQ HS [facility] Last Admin: 10/01/16 22:01 Dose: 25 units Piperacillin Sod/Tazobactam Sod (Zosyn 3.375gm Ivpb (Pre-Docked)) 3.375 gm IVPB Q8H-IV MARNIE PRN Reason: Protocol Last Admin: 10/02/16 01:19 Dose: 3.375 gm Vancomycin HCl (Vancomycin (Pre-Docked)) 1,000 mg IVPB BID MARNIE PRN Reason: Protocol Last Admin: 10/01/16 22:01 Dose: 1,000 mg - Objective Vital Signs: Vital Signs Temperature 98.6 F 10/02/16 07:46 Pulse Rate 69 10/02/16 07:46 Respiratory Rate 20 10/02/16 07:46 Blood Pressure 137/59 10/02/16 07:46 O2 Sat by Pulse Oximetry (%) 96 10/01/16 21:00 Cardiovascular: Yes: Regular Rate and Rhythm Respiratory: Yes: Regular, CTA Bilaterally Gastrointestinal: Yes: Normal Bowel Sounds, Soft Extremities: Yes: Cool (LT TOE), Erythema, Other (ULCER AT BASE) Labs: CBC, BMP 10/01/16 06:00 10/01/16 06:00 Problem List - Problems (1) Foot ulcer Assessment/Plan: PER VASCULAR/PODIATRY IV ABX Code(s): L97.509 - NON-PRESSURE CHRONIC ULCER OTH PRT UNSP FOOT W UNSP SEVERITY (2) Osteomyelitis Assessment/Plan: IV ABX MONITOR Code(s): M86.9 - OSTEOMYELITIS, UNSPECIFIED (3) Altered mental status Assessment/Plan: NEURO ON CASE MAYBE TOXIC/METABOLIC Code(s): R41.82 - ALTERED MENTAL STATUS, UNSPECIFIED Qualifiers: Altered mental status type: disorientation Qualified Code(s): R41.0 - Disorientation, unspecified (4) 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
--- NOTE | 2016-10-02 09:49 | PN ---
Progress Note (short form) - Note Progress Note: NEUROSURGERY No H/A, N/V Vascular input noted PE: Tmax 100.4, VSS HEENT- NC/AT; neck- supple; cor- RR; Lungs- CTA B; Abd- beingn, + BS; Ext- chronic venous changes distal LE B; redness/swelling left calf/jose/ankle less marked A/A/Ox2; memory mildly impaired; CN- intact; Motor 5/5 without drift; Sensation - decreased B feet vibration; DTR- hyporeflexia B UE/LE ESR 60; WBC 8.[address]- atrophy, mild- ventriculomegaly with dilatation of lateral and third ventricles and some temporal horns; mild periventricular small vessel dz; no fx , no bleed Brain MRI-moderate atrophy, no acute stroke, doubt HCP Blood culture negative x 48 hours LE Duplex- L > R LE atherosclerotic dz PAD DM with peripheral neuropathy Vascular f/u
[2016-10-02] MEDS ORDERED: INSULIN (NOVOLOG) ASPART 100 UNITS/ML 10ML VIAL ONE ×4 (10:09→21:10)
[2016-10-02] MEDS: VANCOMYCIN 1 GRAM (PRE-DOCKED) 1,000 MG/250 ML BAG IVPB SCH ×2 (10:16→21:49)
[2016-10-02] MEDS: HEPARIN NA (PORCINE) 5,000 UNITS/ML 1ML VIAL SQ SCH ×2 (10:16→21:49)
[2016-10-02] MEDS ORDERED: ACETAMINOPHEN 325 MG TABLET (FP) PO PRN (16:38)
[2016-10-02] MEDS ORDERED: INSULIN (NOVOLOG MIX 70/30) 100 UNITS/ML MDV SQ ONE (17:51)
[2016-10-02] MEDS ORDERED: INSULIN DETEMIR 100 UNITS/ML MDV SQ ONE (17:52)
[2016-10-02] MEDS ORDERED: PT OWN MED DRAWER 7, Y5N ONE (17:52)
--- NOTE | 2016-10-02 20:51 | PN ---
Progress Note (short form) - Note Progress Note: Pt.states he still cant find his car, related the episode of confusion that brought him to hospital. He denies urinary incontinence/frequency and denies gait difficulty. Exam-oriented to place/person/ year only. Speech is hesitant, affect is blunted. 5/5 strength, tone is slightly increased in both legs. Reflexes-absent ankle jerks and knee jerks, rest are 1+symmetrically. Gait MRI Brain with atrophy and dilated ventricles secondary to hydrocephalus. The hydrocephalus is not out of proportion to atrophy hence low suspicion for NPH. Assessment: Likely confusional episode due to infection/metabolic abn. If after correction of metabolic abn/infection his mentation is still not back to his baseline would consider a diagnostic spinal tap to see if he improves with CSF withdrawl. Thank you, Hero Gamboa MD
[2016-10-02] MEDS: INSULIN DETEMIR 100 UNITS/ML MDV SQ SCH (22:11)
--- NOTE | 2016-10-02 22:49 | CONSULT ---
Consult Consult Specialty:: endocrine Referred by:: dr.moizuddin dotson Reason for Consultation:: diabetes mellitus - History of Present Illness Chief Complaint: low sugar History of Present Illness: Patient is A 61 year old male with a PMHx of DMII who was BIBA for ems and was found to have glucose level of 43. Patient was complaining of a chronic left great toe ulcer for the last 6 months but has not taken care of his wound. Patient is a noncompliant with diabetic management since he did not have resource to get diabetic supplies. - History Source History Provided By: Patient - Past Medical History Endocrine: Yes: Diabetes Mellitus - Alcohol/Substance Use Hx Alcohol Use: No - Smoking History Smoking history: Never smoked Have you smoked in the past 12 months: No Home Medications - Allergies Allergies/Adverse Reactions: Allergies Allergy/AdvReac Type Severity Reaction Status Date / Time No Known Allergies Allergy Verified 07/25/13 15:10 - Home Medications Home Medications: Ambulatory Orders Insulin (Levemir) [Levemir Flexpen -] 45 mg SQ ACBK 07/25/13 Review of Systems - Review of Systems Constitutional: reports: Unintentional Wgt. Loss Eyes: reports: No Symptoms HENT: reports: No Symptoms Neck: reports: No Symptoms Cardiovascular: reports: No Symptoms Respiratory: reports: Exercise Intolerance, SOB on Exertion Gastrointestinal: reports: Constipation Genitourinary: reports: No Symptoms Breasts: reports: No Symptoms Reported Musculoskeletal: reports: Muscle Cramps Integumentary: reports: No Symptoms Neurological: reports: Numbness, Weakness Endocrine: reports: Unexplained Weight Loss Physical Exam Vital Signs: Vital Signs Temperature 100.1 F H 10/02/16 20:29 Pulse Rate 87 10/02/16 20:29 Respiratory Rate 20 10/02/16 20:29 Blood Pressure 116/62 10/02/16 20:29 O2 Sat by Pulse Oximetry (%) 100 10/02/16 10:00 Constitutional: Yes: Anxious Eyes: Yes: EOM Intact HENT: Yes: Normocephalic Neck: Yes: Trachea Midline Cardiovascular: Yes: Regular Rate and Rhythm Respiratory: Yes: CTA Bilaterally Gastrointestinal: Yes: Normal Bowel Sounds ...Rectal Exam: Yes: Deferred Renal/: Yes: WNL Breast(s): Yes: WNL Musculoskeletal: Yes: Muscle Weakness Edema: No Wound/Incision: Yes: Clean/Dry, Excoriated Neurological: Yes: Alert, Oriented ...Motor Strength: LLE Labs: CBC, BMP 10/01/16 06:00 10/01/16 06:00 Problem List - Problems (1) 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, without long-term current use of insulin Code(s): E08.52 - DIAB DUE TO UNDRL COND W DIABETIC PRPH ANGIOPATH W GANGRENE (2) Diabetes type 2, uncontrolled Code(s): E11.65 - TYPE 2 DIABETES MELLITUS WITH HYPERGLYCEMIA Qualifiers: Diabetes mellitus complication status: with neurologic complications (3) Foot ulcer Code(s): L97.509 - NON-PRESSURE CHRONIC ULCER OTH PRT UNSP FOOT W UNSP SEVERITY (4) Hypoglycemia Code(s): E16.2 - HYPOGLYCEMIA, UNSPECIFIED Assessment/Plan Current Active Problems Altered mental status (Acute) 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, without long-term current use of insulin (Acute) Diabetes type 2, uncontrolled (Acute) Foot ulcer (Acute) Hypoglycemia (Acute) Hypokalemia (Acute) Normal pressure hydrocephalus (Acute) Osteomyelitis (Acute) Laboratory Results - last 24 hr 10/02/16 10/02/16 10/02/16 05:20 11:51 16:20 POC Glucometer 139 244 282 10/02/16 22:09 POC Glucometer 281 Laboratory Tests 09/30/16 10/01/16 10/01/16 02:04 06:00 06:00 WBC 8.4 D RBC 3.71 L Hgb 10.4 L Hct 30.6 L MCV 82.5 MCHC 34.0 RDW 13.4 Plt Count 170 Sodium 137 Potassium 3.5 Chloride 102 Carbon Dioxide 26 Anion Gap 9 BUN 11 D Creatinine 0.8 Creat Clearance w eGFR > 60 POC Glucometer Random Glucose 144 H D Hemoglobin A1c % 11.0 H 10/01/16 10/01/16 10/02/16 17:28 21:56 05:20 WBC RBC Hgb Hct MCV MCHC RDW Plt Count Sodium Potassium Chloride Carbon Dioxide Anion Gap BUN Creatinine Creat Clearance w eGFR POC Glucometer 281 248 139 Random Glucose Hemoglobin A1c % plan: bgm novolog insulin dose levemir 10 units am levemir 25 units hs
[2016-10-03] MEDS: PIPERACILLIN/TAZOB 3.375 GM/50 ML PRE-DOCKED IVPB SCH ×3 (01:32→18:17)
[2016-10-03] MEDS: INSULIN SLIDING SCALE (NOVOLOG) 1 VIAL SQ SCH ×4 (06:15→22:41)
[2016-10-03] MEDS: INSULIN DETEMIR 100 UNITS/ML MDV SQ SCH ×2 (06:15→22:41)
[2016-10-03] MEDS: HEPARIN NA (PORCINE) 5,000 UNITS/ML 1ML VIAL SQ SCH ×2 (12:17→22:35)
[2016-10-03] MEDS: VANCOMYCIN 1 GRAM (PRE-DOCKED) 1,000 MG/250 ML BAG IVPB SCH ×2 (14:10→22:35)
--- NOTE | 2016-10-03 15:34 | PN ---
Progress Note, Physician Chief Complaint: patient unable to recall where his car is - Current Medication List Current Medications: Active Medications Acetaminophen (Tylenol -) 650 mg PO Q4H PRN PRN Reason: FEVER OR PAIN Heparin Sodium (Porcine) (Heparin -) 5,000 unit SQ BID [facility] Last Admin: 10/03/16 12:17 Dose: 5,000 unit Insulin Aspart (Novolog Vial Sliding Scale -) 1 vial SQ ACHS MARNIE PRN Reason: Protocol Last Admin: 10/03/16 12:16 Dose: 2 units Insulin Detemir (Levemir Vial) 25 units SQ HS [facility] Last Admin: 10/02/16 22:11 Dose: 25 units Insulin Detemir (Levemir Vial) 10 units SQ AM [facility] Last Admin: 10/03/16 06:15 Dose: 10 units Piperacillin Sod/Tazobactam Sod (Zosyn 3.375gm Ivpb (Pre-Docked)) 3.375 gm IVPB Q8H-IV MARNIE PRN Reason: Protocol Last Admin: 10/03/16 12:59 Dose: 3.375 gm Vancomycin HCl (Vancomycin (Pre-Docked)) 1,000 mg IVPB BID MARNIE PRN Reason: Protocol Last Admin: 10/03/16 14:10 Dose: 1,000 mg - Objective Vital Signs: Vital Signs Temperature 98.4 F 10/03/16 07:12 Pulse Rate 80 10/03/16 10:00 Respiratory Rate 18 10/03/16 10:00 Blood Pressure 124/68 10/03/16 10:00 O2 Sat by Pulse Oximetry (%) 96 10/03/16 09:00 Constitutional: Yes: Calm Cardiovascular: Yes: Regular Rate and Rhythm, S1, S2 Respiratory: Yes: CTA Bilaterally Gastrointestinal: Yes: Normal Bowel Sounds, Soft Neurological: Yes: Alert Labs: CBC, BMP 10/01/16 06:00 10/01/16 06:00 Problem List - Problems (1) Osteomyelitis Assessment/Plan: patient doesnot want amputation osteo of left first toe on iv abx will need terminal block assembler abx ID FU for duration MRI of foot noted podiatry saw patient as well Code(s): M86.9 - OSTEOMYELITIS, UNSPECIFIED (2) Altered mental status Assessment/Plan: neuro FU iv abx for DM ulcer appreicate podiatry note lower extremity ultrasound done no report to asses peripheral circulation Code(s): R41.82 - ALTERED MENTAL STATUS, UNSPECIFIED Qualifiers: Altered mental status type: disorientation Qualified Code(s): R41.0 - Disorientation, unspecified (3) Hypokalemia Assessment/Plan: improved now normal Code(s): E87.6 - HYPOKALEMIA (4) Diabetes type 2, uncontrolled Assessment/Plan: hga1c 11 insulin ENdo eval insulin adjusted podiarty to see feet- consult appreicated Code(s): E11.65 - TYPE 2 DIABETES MELLITUS WITH HYPERGLYCEMIA Qualifiers: Diabetes mellitus complication status: with neurologic complications
--- NOTE | 2016-10-03 19:51 | PN ---
Progress Note (short form) - Note Progress Note: Vascular Surgery Left great toe gangrene CTA ordered to look at runoff into foot. Pt with palpable PT pulse, but no palpable DP pulse. Might need angiogram on Mon. Vadim Key DO
[2016-10-04] MEDS: PIPERACILLIN/TAZOB 3.375 GM/50 ML PRE-DOCKED IVPB SCH ×3 (02:07→17:43)
[2016-10-04] MEDS: INSULIN DETEMIR 100 UNITS/ML MDV SQ SCH ×2 (06:41→22:44)
[2016-10-04] MEDS: INSULIN SLIDING SCALE (NOVOLOG) 1 VIAL SQ SCH ×4 (06:41→22:43)
[2016-10-04] MEDS: HEPARIN NA (PORCINE) 5,000 UNITS/ML 1ML VIAL SQ SCH ×2 (10:15→22:44)
--- NOTE | 2016-10-04 11:00 | PN ---
Progress Note, Physician History of Present Illness: AWAKE IN BED D/W PT REGARDING SNF--[facility] - Current Medication List Current Medications: Active Medications Acetaminophen (Tylenol -) 650 mg PO Q4H PRN PRN Reason: FEVER OR PAIN Heparin Sodium (Porcine) (Heparin -) 5,000 unit SQ BID [facility] Last Admin: 10/04/16 10:15 Dose: 5,000 unit Insulin Aspart (Novolog Vial Sliding Scale -) 1 vial SQ ACHS [facility]ARN[facility] PRN Reason: Protocol Last Admin: 10/04/16 06:41 Dose: Not Given Insulin Detemir (Levemir Vial) 25 units SQ HS [facility] Last Admin: 10/03/16 22:41 Dose: 25 units Insulin Detemir (Levemir Vial) 10 units SQ AM [facility] Last Admin: 10/04/16 06:41 Dose: 10 units Piperacillin Sod/Tazobactam Sod (Zosyn 3.375gm Ivpb (Pre-Docked)) 3.375 gm IVPB Q8H-IV [facility]ARNIE PRN Reason: Protocol Last Admin: 10/04/16 10:15 Dose: 3.375 gm Vancomycin HCl (Vancomycin (Pre-Docked)) 1,000 mg IVPB BID [facility] PRN Reason: Protocol Last Admin: 10/03/16 22:35 Dose: 1,000 mg - Objective Vital Signs: Vital Signs Temperature 97.6 F 10/04/16 06:00 Pulse Rate 77 10/04/16 06:00 Respiratory Rate 20 10/04/16 06:00 Blood Pressure 118/84 10/04/16 06:00 O2 Sat by Pulse Oximetry (%) 94 L 10/03/16 22:00 Cardiovascular: Yes: Regular Rate and Rhythm Respiratory: Yes: Regular, CTA Bilaterally Gastrointestinal: Yes: Normal Bowel Sounds, Soft Extremities: Yes: Other (LESS ERYTHEMA ESCHAR ON PLANTAR ASPECT OF GREAT TOE) Labs: CBC, BMP 10/01/16 06:00 10/01/16 06:00 Problem List - Problems (1) Foot ulcer Assessment/Plan: PER VASCULAR/PODIATRY IV ABX Code(s): L97.509 - NON-PRESSURE CHRONIC ULCER OTH PRT UNSP FOOT W UNSP SEVERITY (2) Osteomyelitis Assessment/Plan: IV ABX--FOR PICC LINE MONITOR Code(s): M86.9 - OSTEOMYELITIS, UNSPECIFIED (3) Altered mental status Assessment/Plan: NEURO ON CASE MAYBE TOXIC/METABOLIC Code(s): R41.82 - ALTERED MENTAL STATUS, UNSPECIFIED Qualifiers: Altered mental status type: disorientation Qualified Code(s): R41.0 - Disorientation, unspecified (4) 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
[2016-10-04] MEDS: VANCOMYCIN 1 GRAM (PRE-DOCKED) 1,000 MG/250 ML BAG IVPB SCH ×2 (11:40→22:43)
[2016-10-05] MEDS: PIPERACILLIN/TAZOB 3.375 GM/50 ML PRE-DOCKED IVPB SCH ×3 (01:09→18:23)
[2016-10-05] MEDS: INSULIN DETEMIR 100 UNITS/ML MDV SQ SCH ×2 (06:18→21:27)
[2016-10-05] MEDS: INSULIN SLIDING SCALE (NOVOLOG) 1 VIAL SQ SCH ×4 (06:18→22:30)
[2016-10-05] MEDS: HEPARIN NA (PORCINE) 5,000 UNITS/ML 1ML VIAL SQ SCH ×2 (09:02→21:26)
[2016-10-05] MEDS: VANCOMYCIN 1 GRAM (PRE-DOCKED) 1,000 MG/250 ML BAG IVPB SCH ×2 (09:02→21:26)
--- NOTE | 2016-10-05 10:44 | PN ---
Progress Note (short form) - Note Progress Note: Vascular Surgery Left great toe gangrene Awaiting official CTA results from radiology Vadim Key DO
--- NOTE | 2016-10-05 11:13 | PN ---
Progress Note, Physician Chief Complaint: awake alert aware of possible amputation left toe however willing to try iv abx - Current Medication List Current Medications: Active Medications Acetaminophen (Tylenol -) 650 mg PO Q4H PRN PRN Reason: FEVER OR PAIN Heparin Sodium (Porcine) (Heparin -) 5,000 unit SQ BID [facility] Last Admin: 10/05/16 09:02 Dose: 5,000 unit Insulin Aspart (Novolog Vial Sliding Scale -) 1 vial SQ ACHS [facility] PRN Reason: Protocol Last Admin: 10/05/16 06:18 Dose: 2 units Insulin Detemir (Levemir Vial) 25 units SQ HS [facility] Last Admin: 10/04/16 22:44 Dose: 25 units Insulin Detemir (Levemir Vial) 10 units SQ AM [facility] Last Admin: 10/05/16 06:18 Dose: 10 units Piperacillin Sod/Tazobactam Sod (Zosyn 3.375gm Ivpb (Pre-Docked)) 3.375 gm IVPB Q8H-IV MARNIE PRN Reason: Protocol Last Admin: 10/05/16 08:59 Dose: 3.375 gm Vancomycin HCl (Vancomycin (Pre-Docked)) 1,000 mg IVPB BID [facility] PRN Reason: Protocol Last Admin: 10/05/16 09:02 Dose: 1,000 mg - Objective Vital Signs: Vital Signs Temperature 98.8 F 10/05/16 06:11 Pulse Rate 75 10/05/16 06:11 Respiratory Rate 20 10/05/16 06:11 Blood Pressure 146/73 10/05/16 06:11 O2 Sat by Pulse Oximetry (%) 96 10/04/16 09:00 Constitutional: Yes: Mild Distress Eyes: Yes: WNL HENT: Yes: WNL Neck: Yes: WNL Cardiovascular: Yes: WNL Respiratory: Yes: WNL Gastrointestinal: Yes: WNL Genitourinary: Yes: WNL Musculoskeletal: Yes: Other Extremities: Yes: Deformity Edema: No Peripheral Pulses WNL: Yes Integumentary: Yes: Erythema Wound/Incision: Yes: Dressing Removed, Excoriated, Other (NECROTIC LEFT TOE) Neurological: Yes: Other ...Motor Strength: LLE Psychiatric: Yes: WNL Labs: CBC, BMP 10/01/16 06:00 10/01/16 06:00 Problem List - Problems (1) Altered mental status Code(s): R41.82 - ALTERED MENTAL STATUS, UNSPECIFIED Qualifiers: Altered mental status type: disorientation Qualified Code(s): R41.0 - Disorientation, unspecified (2) 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
--- NOTE | 2016-10-05 14:18 | PN ---
Progress Note (short form) - Note Progress Note: no complaints awaiting results of CTA Vital Signs Period Temp Pulse Resp BP Sys/Smith Pulse Ox Last 24 Hr 98.5 F-99.4 F 75-93 18-20 146-161/73-82 cor-rrr lungs clear abd soft,nt ext +callus big toe, surrounding edema unchanged CBC, BMP 10/01/16 06:00 10/01/16 06:00 Microbiology 09/29/16 21:50 Blood - Peripheral Venous Blood Culture - Final NO GROWTH AFTER 5 DAYS INCUBATION 09/29/16 21:50 Blood - Peripheral Venous Blood Culture - Final NO GROWTH AFTER 5 DAYS INCUBATION mri with uptake of proximal and distal phalanx imp/reccd diabetic foot infection will chronic ulcer and cellulitis osteomyelitis of big toe vanco/zosyn esr/crp mri podiatry awaiting vascular workup, continue zosyn/vancomycin currently refusing amputation of the big toe- would he benefit from debridement? will need 6 weeks iv antibiotics- am not sure we can heal the toe without debridement/amputation suggest SNF
[2016-10-06] MEDS: PIPERACILLIN/TAZOB 3.375 GM/50 ML PRE-DOCKED IVPB SCH ×3 (01:30→17:51)
[2016-10-06] MEDS: INSULIN SLIDING SCALE (NOVOLOG) 1 VIAL SQ SCH ×4 (06:19→23:33)
[2016-10-06] MEDS: INSULIN DETEMIR 100 UNITS/ML MDV SQ SCH ×2 (06:20→23:32)
[2016-10-06 07:38] LABS: MCH 28.2 pg (25.7-33.7); MCHC 34.2 g/dl (32.0-35.9); MEAN CELL VOLUME 82.6 fl (80-96); MEAN PLT VOLUME 7.8 fl (7.5-11.1); PLATELET COUNT 198 K/MM3 (134-434); RDW 13.9 % (11.9-15.9); WHITE BLOOD COUNT 10.8 K/mm3 (4.0-10.0)
[2016-10-06 08:36] LABS: ALBUMIN 2.4 g/dl (3.4-5.0); ALK PHOS 59 U/L (45-117); ANION GAP 10 (8-16); BILIRUBIN,TOTAL 0.6 mg/dL (0.2-1.0); CALCIUM 8.7 mg/dL (8.5-10.1); CO2 28 mmol/L (21-32); CREATININE 0.8 mg/dL (0.7-1.3); GLUCOSE,RANDOM 140 mg/dL (74-106); SGOT/AST 22 U/L (15-37); SGPT/ALT 24 U/L (12-78); TOT PROT 6.6 g/dl (6.4-8.2)
[2016-10-06] MEDS: HEPARIN NA (PORCINE) 5,000 UNITS/ML 1ML VIAL SQ SCH ×2 (10:08→23:21)
[2016-10-06] MEDS: VANCOMYCIN 1 GRAM (PRE-DOCKED) 1,000 MG/250 ML BAG IVPB SCH ×2 (10:11→23:22)
--- NOTE | 2016-10-06 11:36 | PN ---
Progress Note, Physician Chief Complaint: PATIENT SEEN EXAMINED, WOULD LIKE TO SEE ANOTHER PMD - Current Medication List Current Medications: Active Medications Acetaminophen (Tylenol -) 650 mg PO Q4H PRN PRN Reason: FEVER OR PAIN Heparin Sodium (Porcine) (Heparin -) 5,000 unit SQ BID [facility] Last Admin: 10/06/16 10:08 Dose: 5,000 unit Insulin Aspart (Novolog Vial Sliding Scale -) 1 vial SQ ACHS [facility]ARN[facility] PRN Reason: Protocol Last Admin: 10/06/16 06:19 Dose: 2 units Insulin Detemir (Levemir Vial) 25 units SQ HS [facility] Last Admin: 10/05/16 21:27 Dose: 25 units Insulin Detemir (Levemir Vial) 10 units SQ AM [facility] Last Admin: 10/06/16 06:20 Dose: 10 units Piperacillin Sod/Tazobactam Sod (Zosyn 3.375gm Ivpb (Pre-Docked)) 3.375 gm IVPB Q8H-IV [facility]ARNIE PRN Reason: Protocol Last Admin: 10/06/16 10:08 Dose: 3.375 gm Vancomycin HCl (Vancomycin (Pre-Docked)) 1,000 mg IVPB BID [facility] PRN Reason: Protocol Last Admin: 10/06/16 10:11 Dose: 1,000 mg - Objective Vital Signs: Vital Signs Temperature 97.8 F 10/06/16 07:29 Pulse Rate 84 10/06/16 07:29 Respiratory Rate 20 10/06/16 07:29 Blood Pressure 138/66 10/06/16 07:29 O2 Sat by Pulse Oximetry (%) 96 10/05/16 21:00 Constitutional: Yes: No Distress Eyes: Yes: WNL HENT: Yes: WNL Neck: Yes: WNL Cardiovascular: Yes: WNL Respiratory: Yes: WNL Gastrointestinal: Yes: WNL Genitourinary: Yes: WNL Musculoskeletal: Yes: Muscle Weakness Extremities: Yes: Deformity, Erythema Edema: Yes Peripheral Pulses WNL: Yes Integumentary: No: Other (NECROTIC TOE) Wound/Incision: Yes: Other Neurological: Yes: Pre-Existing Deficit ...Motor Strength: LLE, RLE Psychiatric: Yes: Agitated Labs: CBC, BMP 10/06/16 06:10 10/06/16 06:10 Problem List - Problems (1) Altered mental status Code(s): R41.82 - ALTERED MENTAL STATUS, UNSPECIFIED Qualifiers: Altered mental status type: disorientation Qualified Code(s): R41.0 - Disorientation, unspecified (2) 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
--- NOTE | 2016-10-06 12:45 | PN ---
Progress Note (short form) - Note Progress Note: Vascular surgery Pt seen and examined. Left great toe gangrene. CTA results reviewed. There is some disease in the popliteal artery, and pt does not have a strong DP pulse in the foot. Offered angiogram to the pt to clear pt for podiatry procedure. Pt refused -- wants Dr. Davis to do angiogram. Communicated to pt that Dr. davis is away and returns on monday. He said he will wait. PA's will communicate to Dr. Davis these new events. Vadim Key DO
--- NOTE | 2016-10-06 12:59 | SPA.PREOP ---
- PRE-OP NOTE Dx: Left great toe gangrene Planned Procedure: left lower extremity angiogram with possible plasty for left great toe gangrene Surgeon: Dr. Mayen Last Vital Signs Temp Pulse Resp BP Pulse Ox 97.8 F 84 20 138/66 96 10/06/16 07:29 10/06/16 07:29 10/06/16 07:29 10/06/16 07:29 10/05/16 21:00 Lab Results WBC 10.8 K/mm3 (4.0-10.0) H 10/06/16 06:10 RBC 3.76 M/mm3 (4.00-5.60) L 10/06/16 06:10 Hgb 10.6 GM/dL (11.7-16.9) L 10/06/16 06:10 Hct 31.1 % (35.4-49) L 10/06/16 06:10 MCV 82.6 fl (80-96) 10/06/16 06:10 MCHC 34.2 g/dl (32.0-35.9) 10/06/16 06:10 RDW 13.9 % (11.9-15.9) 10/06/16 06:10 Plt Count 198 K/MM3 (134-434) 10/06/16 06:10 Sodium 137 mmol/L (136-145) 10/06/16 06:10 Potassium 3.7 mmol/L (3.5-5.1) 10/06/16 06:10 Chloride 99 mmol/L (98-107) 10/06/16 06:10 Carbon Dioxide 28 mmol/L (21-32) 10/06/16 06:10 Anion Gap 10 (8-16) 10/06/16 06:10 BUN 12 mg/dL (7-18) 10/06/16 06:10 Creatinine 0.8 mg/dL (0.7-1.3) 10/06/16 06:10 Random Glucose 140 mg/dL (74-106) H 10/06/16 06:10 Calcium 8.7 mg/dL (8.5-10.1) 10/06/16 06:10 - IMAGING Other: Other (CTA-10/03: narrowing of distal SFA and left popliteal. Edematous changes to left great toe) - ASSESSMENT/PLAN 1. Make NPO after 8 am except po meds 2. check INR/Type and Screen 3. Medical optimization / clearance Problem List - Problems (1) Gangrene Code(s): I96 - GANGRENE, NOT ELSEWHERE CLASSIFIED Visit type - Case Type Case Type: ED Admission - New patient This patient is new to me today: No
[2016-10-06] MEDS ORDERED: PICC LINE 8 ML FLUSH PROTOCOL IVPUSH PRN (13:19)
[2016-10-07] MEDS: PIPERACILLIN/TAZOB 3.375 GM/50 ML PRE-DOCKED IVPB SCH ×4 (01:48→21:10)
[2016-10-07] MEDS: INSULIN DETEMIR 100 UNITS/ML MDV SQ SCH ×2 (06:01→21:11)
[2016-10-07] MEDS: INSULIN SLIDING SCALE (NOVOLOG) 1 VIAL SQ SCH ×4 (06:02→21:12)
[2016-10-07 07:45] LABS: INR 1.32 (0.82-1.09); PROTHROMBIN TIME (PATIENT) 14.6 SEC (9.98-11.88)
[2016-10-07] MEDS ORDERED: SODIUM CHLORIDE 1,000 ML IV SCH ×2 (08:00→19:19)
[2016-10-07] MEDS: HEPARIN NA (PORCINE) 5,000 UNITS/ML 1ML VIAL SQ SCH (10:06)
[2016-10-07] MEDS: VANCOMYCIN 1 GRAM (PRE-DOCKED) 1,000 MG/250 ML BAG IVPB SCH ×2 (11:56→21:13)
[2016-10-07] MEDS ORDERED: HEPARIN NA (PORCINE) 5,000 UNITS/ML 1ML VIAL ONE ×3 (16:10→18:17)
[2016-10-07] MEDS ORDERED: LIDOCAINE HCL 1%, 10 MG/ML (20ML VIAL) ONE (16:10)
[2016-10-07] MEDS ORDERED: ONDANSETRON 4 MG/2 ML VIAL IVPUSH PRN ×2 (16:38→19:19)
[2016-10-07] MEDS ORDERED: PROMETHAZINE HCL 25 MG/1 ML VIAL IVPUSH PRN ×2 (16:38→19:19)
[2016-10-07] MEDS ORDERED: LACTATED RINGERS SOLUTION 1,000 ML IV SCH ×2 (16:45→19:19)
[2016-10-07] MEDS ORDERED: MIDAZOLAM HCL 2 MG/2 ML SINGLE DOSE VIAL ONE ×2 (16:50→17:20)
--- NOTE | 2016-10-07 17:35 | PN ---
Progress Note, Physician Chief Complaint: LEFT TOE GANGRENE History of Present Illness: COMFORTABLE IN BED, A LITTLE ANXIOUS ABOUT THE ANGIOGRAM TODAY. - Current Medication List Current Medications: Active Medications Acetaminophen (Tylenol -) 650 mg PO Q4H PRN PRN Reason: FEVER OR PAIN Fentanyl (Sublimaze Injection -) 50 mcg IVPUSH [id number] PRN PRN Reason: PAIN Stop: 10/10/16 16:39 IV Flush (Picc Line Flush) 8 ml IVPUSH PRN PRN PRN Reason: Protocol Last Admin: 10/06/16 17:54 Dose: 8 ml Sodium Chloride (Normal Saline -) 1,000 mls @ 75 mls/hr IV ASDIR [facility] Last Admin: 10/07/16 08:16 Dose: 75 mls/hr Lactated Ringer's (Lactated Ringers Solution) 1,000 mls @ 125 mls/hr IV ASDIR [facility]ARNIE Insulin Aspart (Novolog Vial Sliding Scale -) 1 vial SQ ACHS [facility] PRN Reason: Protocol Last Admin: 10/07/16 16:34 Dose: Not Given Insulin Detemir (Levemir Vial) 25 units SQ HS [facility] Last Admin: 10/06/16 23:32 Dose: 25 units Insulin Detemir (Levemir Vial) 10 units SQ AM [facility] Last Admin: 10/07/16 06:01 Dose: Not Given Ondansetron HCl (Zofran Injection) 4 mg IVPUSH Q6H PRN PRN Reason: NAUSEA AND/OR VOMITING Stop: 10/07/16 22:39 Piperacillin Sod/Tazobactam Sod (Zosyn 3.375gm Ivpb (Pre-Docked)) 3.375 gm IVPB Q8H-IV [facility] PRN Reason: Protocol Last Admin: 10/07/16 09:43 Dose: 3.375 gm Promethazine HCl (Phenergan Injection -) 12.5 mg IVPUSH Q6H PRN PRN Reason: NAUSEA Stop: 10/07/16 22:39 Vancomycin HCl (Vancomycin (Pre-Docked)) 1,000 mg IVPB BID [facility] PRN Reason: Protocol Last Admin: 10/07/16 11:56 Dose: 1,000 mg - Objective Vital Signs: Vital Signs Temperature 97.7 F 10/07/16 14:46 Pulse Rate 81 10/07/16 14:46 Respiratory Rate 18 10/07/16 14:46 Blood Pressure 127/73 10/07/16 14:46 O2 Sat by Pulse Oximetry (%) 96 10/07/16 09:00 Constitutional: Yes: Well Nourished, No Distress, Calm Cardiovascular: Yes: Regular Rate and Rhythm Respiratory: Yes: Regular Gastrointestinal: Yes: Normal Bowel Sounds Musculoskeletal: Yes: Muscle Pain (LEFT FOOT) Extremities: Yes: Cool (LLE) Edema: No Peripheral Pulses WNL: No Peripheral Pulses: Left Doralis Pedis: 0 Wound/Incision: Yes: Dressing Dry and Intact Neurological: Yes: Alert, Oriented Labs: CBC, BMP 10/06/16 06:10 10/06/16 06:10 INR, PTT INR 1.32 (0.82-1.09) H 10/07/16 05:56 Problem List - Problems (1) Diabetes type 2, uncontrolled Assessment/Plan: -UNCONTROLLED WITH HGA1C AT 11.0 -ON INSULIN SLIDING SCALE -SEEN BY ENDOCRINOLOGY Code(s): E11.65 - TYPE 2 DIABETES MELLITUS WITH HYPERGLYCEMIA Qualifiers: Diabetes mellitus complication status: with neurologic complications (2) Foot ulcer Assessment/Plan: -LEFT BIG TOE -PAIN MANAGEMENT -GOING FOR ANGIOGRAM TODAY -ABX VIA PICC LINE Code(s): L97.509 - NON-PRESSURE CHRONIC ULCER OTH PRT UNSP FOOT W UNSP SEVERITY (3) Osteomyelitis Assessment/Plan: -SEEN BY ID -IV ABX VIA PICC LINE TECHNICIAN ANATOMIC PATHOLOGY -PAIN MANAGEMENT Code(s): M86.9 - OSTEOMYELITIS, UNSPECIFIED Assessment/Plan -ANGIOGRAM TODAY -PAIN MANAGEMENT -IV ABX -ALF ANTICOAGULATION AFTER THE PROCEDURE -TRANSFER TO SNF ONCE STABLE.
--- NOTE | 2016-10-07 19:03 | OP ---
Operative Note - Note: Operative Date: 10/07/16 Pre-Operative Diagnosis: Infected left great toe, PAD Operation: Revascularization of left femoral-popliteal artery with stent and balloon angioplasty. Revascularization left peroneal artery with angioplasty. Debridement of skin, subQ and cartilage from left 1st toe Findings: Distal SFA and proximal popliteal stenoses 99-100%. Patent AT to foot Patent proximal peroneal with occlusion in mid calf and distal reconstitution. Pent proximal PT with occlusion in upper calf and no reconstitution. Pedal flow via DP and collaterals to plantar foot and heel. Necrotic skin plantar 1st toe with cavity around IP joint. No pus. Implants: 6 mm x 120 mm LifeStent in distal SFA Post-Operative Diagnosis: Same as Pre-op Surgeon: Johann Mayen Anesthesiologist/STRESS ANALYST: Giacomo Birmingham Anesthesia: Fractional Specimens Removed: Necrotic skin and subQ, cartilage from IP joint. Estimated Blood Loss (mls): 30
[2016-10-07] MEDS ORDERED: CLOPIDOGREL BISULFATE 75 MG TABLET (FP) PO SCH (19:15)
[2016-10-07] MEDS ORDERED: CLOPIDOGREL BISULFATE 75 MG TABLET (FP) PO ONE (19:15)
[2016-10-07] MEDS ORDERED: ACETAMINOPHEN 325 MG TABLET (FP) PO PRN (19:19)
[2016-10-07] MEDS ORDERED: PICC LINE 8 ML FLUSH PROTOCOL IVPUSH PRN (19:19)
[2016-10-07] MEDS ORDERED: ASPIRIN 81 MG CHEWABLE TABLETS ONE (19:25)
[2016-10-07] MEDS ORDERED: CLOPIDOGREL BISULFATE 75 MG TABLET (FP) ONE (19:26)
[2016-10-07] MEDS: ASPIRIN 81 MG CHEWABLE TABLETS PO SCH (19:30)
[2016-10-08] MEDS: PIPERACILLIN/TAZOB 3.375 GM/50 ML PRE-DOCKED IVPB SCH ×3 (01:42→17:51)
[2016-10-08] MEDS: INSULIN SLIDING SCALE (NOVOLOG) 1 VIAL SQ SCH ×4 (06:37→21:30)
[2016-10-08] MEDS ORDERED: INSULIN DETEMIR 100 UNITS/ML MDV SQ ONE (06:46)
[2016-10-08] MEDS ORDERED: INSULIN (NOVOLOG) ASPART 100 UNITS/ML 10ML VIAL ONE ×3 (06:47→21:12)
[2016-10-08] MEDS ORDERED: PT OWN MED DRAWER 7, Y5N ONE ×3 (06:48→11:14)
[2016-10-08] MEDS ORDERED: INSULIN DETEMIR 100 UNITS/ML MDV SQ SCH (07:00)
[2016-10-08 07:50] LABS: BASOPHIL 0.2 % (0-2.0); EOSINOPHIL 0.2 % (0-4.5); MCH 28.2 pg (25.7-33.7); MCHC 34.1 g/dl (32.0-35.9); MEAN CELL VOLUME 82.8 fl (80-96); MEAN PLT VOLUME 7.6 fl (7.5-11.1); NEUTROPHILS 87.4 % (42.8-82.8); PLATELET COUNT 167 K/MM3 (134-434); WHITE BLOOD COUNT 10.3 K/mm3 (4.0-10.0)
[2016-10-08 08:14] LABS: ALBUMIN 2.2 g/dl (3.4-5.0); ANION GAP 6 (8-16); BILIRUBIN,TOTAL 0.3 mg/dL (0.2-1.0); CALCIUM 8.5 mg/dL (8.5-10.1); CO2 29 mmol/L (21-32); CREATININE 0.8 mg/dL (0.7-1.3); GLUCOSE,RANDOM 127 mg/dL (74-106); SGOT/AST 18 U/L (15-37); SGPT/ALT 22 U/L (12-78); TOT PROT 6.4 g/dl (6.4-8.2)
[2016-10-08 08:15] LABS: ALK PHOS 58 U/L (45-117)
[2016-10-08] MEDS: ASPIRIN 81 MG CHEWABLE TABLETS PO SCH (09:40)
[2016-10-08] MEDS: CLOPIDOGREL BISULFATE 75 MG TABLET (FP) PO SCH (09:42)
[2016-10-08] MEDS ORDERED: CLOPIDOGREL BISULFATE 75 MG TABLET (FP) PO SCH (10:00)
[2016-10-08] MEDS: VANCOMYCIN 1 GRAM (PRE-DOCKED) 1,000 MG/250 ML BAG IVPB SCH ×2 (10:26→21:31)
--- NOTE | 2016-10-08 12:14 | PN ---
Progress Note (short form) - Note Progress Note: POD 1 No c/o Groin access site dry, no hematoma. Left foot warm, small amount bloody drainage from toe Labs stable S/p revascularization left femoral and tibial arteries, debridement of toe. Will need partial toe amputation once erythema resolves. 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
--- NOTE | 2016-10-08 12:51 | OP ---
DATE OF OPERATION: 10/07/2016 SURGEON: Johann Mayen MD PROCEDURE: 1. Revascularization of left femoral and popliteal artery with stent and balloon angioplasty. 2. Revascularization of left peroneal artery with angioplasty. 3. Debridement of skin, subcutaneous tissue, and cartilage from left 1st toe. PREOPERATIVE DIAGNOSIS: Gangrene of left 1st toe. POSTOPERATIVE DIAGNOSIS: Gangrene of left 1st toe. ANESTHESIA: Fractional. ANESTHESIOLOGIST: Alonzo Birmingham MD ANGIOGRAPHIC FINDINGS: The left common and proximal superficial femoral arteries were patent without evidence of atherosclerotic plaque. There were 2 sites of greater than 95% stenosis and occlusion of the distal superficial femoral and proximal popliteal artery. The distal popliteal and the origin of 3 tibial vessels were patent. The posterior tibial artery occluded approximately 2 cm from its origin with no reconstitution seen distally and no artery visible at the level of the malleolus. The anterior tibial artery was patent with mild stenosis proximally with runoff to a small dorsalis pedis artery. The peroneal artery was patent proximally and severely stenotic distally with several focal areas of occlusion. OPERATIVE PROCEDURE: Following routine patient identification with side and site verification, intravenous sedation was established. The left groin was prepped with ChloraPrep. Using realtime duplex imaging, the left common femoral artery was identified and a site for cannulation proximal to the bifurcation was selected. Xylocaine 1% was infiltrated on the lower abdominal wall and using realtime duplex imaging a micropuncture needle was advanced from the skin to the common femoral artery. A micropuncture wire was advanced and manipulated into the superficial femoral artery and then a 5-Peruvian catheter exchanged over the wire. An angle- tip glidewire was then advanced distally in the superficial femoral artery and the catheter exchanged for a 5-Peruvian sheath. Angiography was then performed with dilute contrast using digital technique with the above-noted findings. The angled wire and catheter were then advanced distally and under roadmapping were manipulated through the area of stenosis in the distal femoral artery and through the occlusion in the popliteal artery. Imaging of the tibial arteries was performed and roadmapping used to allow the wire to be advanced into the proximal posterior tibial artery. This was then exchanged out for a 0.014-inch commercial helicopter pilot wire which was advanced into the occluded portion of the posterior tibial artery but could not be advanced more than a few centimeters due to chronic occlusion. The wire and catheter were then pulled up and redirected into the peroneal artery. Using roadmapping technique, it was possible to advance the wire into the distal peroneal artery to its bifurcation. Patient was systemically heparinized. Angioplasty of the peroneal artery was then performed, first with a 1.5-to-2.0 taper balloon and then with a 2.5 balloon. Repeat imaging revealed a patent peroneal artery with good distal flow into its anterior and posterior bifurcation. Attention was then turned to the distal femoral artery. There was no atherectomy catheter available for use, so a decision was made to proceed with balloon angioplasty. A 6-mm by 100-mm angioplasty balloon was used to dilate the distal superficial femoral and proximal popliteal artery at the sites of stenosis. Due to calcified plaque, the balloon ruptured and was removed. Due to this fact, a decision was made to place a stent. A 120-mm by 6-mm diameter LifeStent was deployed across the area of both stenoses and then was dilated with a 6-mm by 120-mm Lutonix drug-coated balloon for 2 minutes. Completion imaging revealed patent stent with no residual stenosis and good distal flow into the foot. A Paige wire was then advanced through the sheath and the sheath was removed. The arteriotomy site was closed with the Perclose device without complication. Sterile dressing was applied. The foot was then uncovered and the 1st toe prepped with Betadine solution. Using a No. 15 scalpel, the necrotic eschar was removed, revealing a subcutaneous pocket around the interphalangeal joint. Loose cartilage was removed and the wound was irrigated and packed with Iodoform gauze and dressed with Kerlix. The patient was then taken to the recovery room in stable condition. Paolo [id number] MTDD
[2016-10-08] MEDS: INSULIN DETEMIR 100 UNITS/ML MDV SQ SCH (21:31)
--- NOTE | 2016-10-08 22:02 | PN ---
Progress Note, Physician Chief Complaint: chart and case reviewed with surgery s/p angio lower extremity tolerated well - Current Medication List Current Medications: Active Medications Acetaminophen (Tylenol -) 650 mg PO Q4H PRN PRN Reason: FEVER OR PAIN Aspirin (Asa -) 81 mg PO DAILY [facility] Last Admin: 10/08/16 09:40 Dose: 81 mg Clopidogrel Bisulfate (Plavix -) 75 mg PO DAILY [facility] Last Admin: 10/08/16 09:42 Dose: 75 mg IV Flush (Picc Line Flush) 8 ml IVPUSH PRN PRN PRN Reason: Protocol Last Admin: 10/08/16 13:30 Dose: 8 ml Insulin Aspart (Novolog Vial Sliding Scale -) 1 vial SQ ACHS [facility]ARNIE PRN Reason: Protocol Last Admin: 10/08/16 21:30 Dose: 7 units Insulin Detemir (Levemir Vial) 25 units SQ HS [facility] Last Admin: 10/08/16 21:31 Dose: 25 units Insulin Detemir (Levemir Vial) 10 units SQ AM [facility] Last Admin: 10/08/16 06:36 Dose: 10 units Piperacillin Sod/Tazobactam Sod (Zosyn 3.375gm Ivpb (Pre-Docked)) 3.375 gm IVPB Q8H-IV [facility]ARNIE PRN Reason: Protocol Last Admin: 10/08/16 17:51 Dose: 3.375 gm Vancomycin HCl (Vancomycin (Pre-Docked)) 1,000 mg IVPB BID [facility] PRN Reason: Protocol Last Admin: 10/08/16 21:31 Dose: 1,000 mg - Objective Vital Signs: Vital Signs Temperature 98.8 F 10/08/16 18:10 Pulse Rate 89 10/08/16 18:10 Respiratory Rate 20 10/08/16 18:10 Blood Pressure 155/83 10/08/16 18:10 O2 Sat by Pulse Oximetry (%) 98 10/08/16 09:00 Constitutional: Yes: Mild Distress Eyes: Yes: WNL HENT: Yes: WNL Neck: Yes: WNL Cardiovascular: Yes: WNL Respiratory: Yes: WNL Gastrointestinal: Yes: WNL Genitourinary: Yes: WNL Musculoskeletal: Yes: Muscle Weakness Extremities: Yes: Deformity Edema: No Peripheral Pulses WNL: Yes Integumentary: Yes: Pressure Ulcer, Other (necrotic right toe) Wound/Incision: Yes: Open to air, Unapproximated Neurological: Yes: Pre-Existing Deficit ...Motor Strength: LLE, RLE Psychiatric: Yes: Other Labs: CBC, BMP 10/08/16 06:30 10/08/16 06:30 INR, PTT INR 1.32 (0.82-1.09) H 10/07/16 05:56 Problem List - Problems (1) Altered mental status Code(s): R41.82 - ALTERED MENTAL STATUS, UNSPECIFIED Qualifiers: Altered mental status type: disorientation Qualified Code(s): R41.0 - Disorientation, unspecified (2) 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
[2016-10-09] MEDS ORDERED: INSULIN DETEMIR 100 UNITS/ML MDV SQ SCH (01:42)
--- NOTE | 2016-10-09 01:47 | PN ---
Progress Note, Physician Chief Complaint: in bed resting no complaint,appetite improving and sugars higher History of Present Illness: sp angiogram,diabetes mellitus with diabetic vascular disease sp revasculariztion left le - Current Medication List Current Medications: Active Medications Acetaminophen (Tylenol -) 650 mg PO Q4H PRN PRN Reason: FEVER OR PAIN Aspirin (Asa -) 81 mg PO DAILY [facility] Last Admin: 10/08/16 09:40 Dose: 81 mg Clopidogrel Bisulfate (Plavix -) 75 mg PO DAILY [facility] Last Admin: 10/08/16 09:42 Dose: 75 mg IV Flush (Picc Line Flush) 8 ml IVPUSH PRN PRN PRN Reason: Protocol Last Admin: 10/08/16 13:30 Dose: 8 ml Insulin Aspart (Novolog Vial Sliding Scale -) 1 vial SQ ACHS MARNIE PRN Reason: Protocol Last Admin: 10/08/16 21:30 Dose: 7 units Insulin Detemir (Levemir Vial) 20 units SQ HS MARNIE Insulin Detemir (Levemir Vial) 20 units SQ AM MARNIE Piperacillin Sod/Tazobactam Sod (Zosyn 3.375gm Ivpb (Pre-Docked)) 3.375 gm IVPB Q8H-IV MARNIE PRN Reason: Protocol Last Admin: 10/08/16 17:51 Dose: 3.375 gm Vancomycin HCl (Vancomycin (Pre-Docked)) 1,000 mg IVPB BID MARNIE PRN Reason: Protocol Last Admin: 10/08/16 21:31 Dose: 1,000 mg - Objective Vital Signs: Vital Signs Temperature 98.8 F 10/08/16 18:10 Pulse Rate 89 10/08/16 18:10 Respiratory Rate 20 10/08/16 18:10 Blood Pressure 155/83 10/08/16 18:10 O2 Sat by Pulse Oximetry (%) 98 10/08/16 09:00 Constitutional: Yes: Calm Eyes: Yes: EOM Intact HENT: Yes: Normocephalic Neck: Yes: Trachea Midline Cardiovascular: Yes: Regular Rate and Rhythm Respiratory: Yes: CTA Bilaterally Gastrointestinal: Yes: Normal Bowel Sounds Genitourinary: Yes: WNL Breast(s): Yes: WNL Musculoskeletal: Yes: Muscle Weakness Extremities: Yes: Cool Edema: No Peripheral Pulses WNL: Yes Integumentary: Yes: Onychomycosis Wound/Incision: Yes: Dressing Dry and Intact Neurological: Yes: Alert, Oriented Labs: CBC, BMP 10/08/16 06:30 10/08/16 06:30 INR, PTT INR 1.32 (0.82-1.09) H 10/07/16 05:56 Problem List - Problems (1) 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, without long-term current use of insulin Code(s): E08.52 - DIAB DUE TO UNDRL COND W DIABETIC PRPH ANGIOPATH W GANGRENE (2) Diabetes type 2, uncontrolled Code(s): E11.65 - TYPE 2 DIABETES MELLITUS WITH HYPERGLYCEMIA Qualifiers: Diabetes mellitus complication status: with neurologic complications (3) Foot ulcer Code(s): L97.509 - NON-PRESSURE CHRONIC ULCER OTH PRT UNSP FOOT W UNSP SEVERITY (4) Hypoglycemia Code(s): E16.2 - HYPOGLYCEMIA, UNSPECIFIED Assessment/Plan Current Active Problems Altered mental status (Acute) 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, without long-term current use of insulin (Acute) Diabetes type 2, uncontrolled (Acute) Foot ulcer (Acute) Gangrene (Acute) Hypoglycemia (Acute) Hypokalemia (Acute) Normal pressure hydrocephalus (Acute) Osteomyelitis (Acute) Abnormal Lab Results 10/08/16 10/08/16 06:30 06:30 WBC 10.3 H RBC 3.35 L Hgb 9.4 L D Hct 27.7 L Neutrophils % 87.4 H Lymphocytes % 7.4 L D Anion Gap 6 L Random Glucose 127 H Albumin 2.2 L Laboratory Results - last 24 hr 10/08/16 10/08/16 10/08/16 06:30 06:30 06:35 WBC 10.3 H RBC 3.35 L Hgb 9.4 L D Hct 27.7 L MCV 82.8 MCH 28.2 MCHC 34.1 RDW 14.0 Plt Count 167 MPV 7.6 Neutrophils % 87.4 H Lymphocytes % 7.4 L D Monocytes % 4.8 Eosinophils % 0.2 Basophils % 0.2 Sodium 138 Potassium 3.8 Chloride 103 Carbon Dioxide 29 Anion Gap 6 L BUN 17 D Creatinine 0.8 Creat Clearance w eGFR > 60 POC Glucometer 144 Random Glucose 127 H Calcium 8.5 Total Bilirubin 0.3 D AST 18 ALT 22 Alkaline Phosphatase 58 Total Protein 6.4 Albumin 2.2 L 10/08/16 10/08/16 10/08/16 12:12 17:49 21:02 WBC RBC Hgb Hct MCV MCH MCHC RDW Plt Count MPV Neutrophils % Lymphocytes % Monocytes % Eosinophils % Basophils % Sodium Potassium Chloride Carbon Dioxide Anion Gap BUN Creatinine Creat Clearance w eGFR POC Glucometer 295 287 311 Random Glucose Calcium Total Bilirubin AST ALT Alkaline Phosphatase Total Protein Albumin plan: increase levemir am dose continue bgm qid novolog scale Current Medications Generic Name Dose Route Start Last Admin Trade Name Freq PRN Reason Stop Dose Admin Acetaminophen 650 mg 10/07/16 19:19 Tylenol - PO Q4H PRN FEVER OR PAIN Aspirin 81 mg 10/07/16 19:15 10/08/16 09:40 Asa - PO 81 mg DAILY MARNIE Administration Clopidogrel Bisulfate 75 mg 10/08/16 10:00 10/08/16 09:42 Plavix - PO 75 mg DAILY MARNIE Administration IV Flush 8 ml 10/07/16 19:19 10/08/16 13:30 Picc Line Flush IVPUSH 8 ml PRN PRN Administration Protocol Insulin Aspart 1 vial 10/07/16 22:00 10/08/16 21:30 Novolog Vial Sliding Scale - SQ 7 units ACHS MARNIE Administration Protocol Insulin Detemir 20 units 10/09/16 01:42 Levemir Vial SQ HS MARNIE Insulin Detemir 20 units 10/09/16 01:42 Levemir Vial SQ AM MARNIE Piperacillin Sod/Tazobactam Sod 3.375 gm 10/07/16 19:30 10/08/16 17:51 Zosyn 3.375gm Ivpb (Pre-Docked) IVPB 3.375 gm Q8H-IV MARNIE Administration Protocol Vancomycin HCl 1,000 mg 10/07/16 22:00 10/08/16 21:31 Vancomycin (Pre-Docked) IVPB 1,000 mg BID MARNIE Administration Protocol
[2016-10-09] MEDS: PIPERACILLIN/TAZOB 3.375 GM/50 ML PRE-DOCKED IVPB SCH ×3 (02:04→19:52)
[2016-10-09] MEDS: INSULIN SLIDING SCALE (NOVOLOG) 1 VIAL SQ SCH ×4 (06:27→22:08)
[2016-10-09] MEDS: INSULIN DETEMIR 100 UNITS/ML MDV SQ SCH (06:29)
[2016-10-09] MEDS ORDERED: INSULIN (NOVOLOG) ASPART 100 UNITS/ML 10ML VIAL ONE ×3 (08:01→11:59)
[2016-10-09] MEDS ORDERED: INSULIN DETEMIR 100 UNITS/ML MDV SQ ONE (08:02)
[2016-10-09 08:37] LABS: BASOPHIL 0.6 % (0-2.0); EOSINOPHIL 0.6 % (0-4.5); MCH 28.1 pg (25.7-33.7); MCHC 33.6 g/dl (32.0-35.9); MEAN CELL VOLUME 83.6 fl (80-96); MEAN PLT VOLUME 7.8 fl (7.5-11.1); PLATELET COUNT 179 K/MM3 (134-434); RDW 13.8 % (11.9-15.9); WHITE BLOOD COUNT 7.5 K/mm3 (4.0-10.0)
[2016-10-09 09:32] LABS: ALBUMIN 2.3 g/dl (3.4-5.0); ALK PHOS 61 U/L (45-117); ANION GAP 6 (8-16); BILIRUBIN,TOTAL 0.3 mg/dL (0.2-1.0); CALCIUM 8.7 mg/dL (8.5-10.1); CO2 29 mmol/L (21-32); CREATININE 0.8 mg/dL (0.7-1.3); GLUCOSE,RANDOM 117 mg/dL (74-106); SGOT/AST 21 U/L (15-37); SGPT/ALT 26 U/L (12-78); TOT PROT 6.5 g/dl (6.4-8.2)
[2016-10-09] MEDS ORDERED: PT OWN MED DRAWER 7, Y5N ONE (09:37)
[2016-10-09] MEDS: ASPIRIN 81 MG CHEWABLE TABLETS PO SCH (10:01)
[2016-10-09] MEDS: CLOPIDOGREL BISULFATE 75 MG TABLET (FP) PO SCH (10:01)
[2016-10-09] MEDS: VANCOMYCIN 1 GRAM (PRE-DOCKED) 1,000 MG/250 ML BAG IVPB SCH ×2 (10:51→22:08)
--- NOTE | 2016-10-09 12:42 | DS ---
Physical Examination Vital Signs: Vital Signs Temperature 97.8 F 10/09/16 06:00 Pulse Rate 77 10/09/16 06:00 Respiratory Rate 20 10/09/16 06:00 Blood Pressure 132/68 10/09/16 06:00 O2 Sat by Pulse Oximetry (%) 98 10/08/16 09:00 Constitutional: Yes: No Distress Eyes: Yes: WNL HENT: Yes: WNL, Tonsillar Exudate Cardiovascular: Yes: WNL Respiratory: Yes: WNL Gastrointestinal: Yes: WNL Renal/: Yes: WNL Musculoskeletal: Yes: Muscle Weakness Extremities: Yes: Deformity Edema: No Peripheral Pulses WNL: Yes Integumentary: Yes: Pressure Ulcer, Rash Wound/Incision: Yes: Open to air Neurological: Yes: Pre-Existing Deficit, Unsteady Gait, Weakness ...Motor Strength: LUE, RLE Psychiatric: Yes: Other Labs: CBC, BMP 10/09/16 07:19 10/09/16 07:19 Discharge Summary Reason For Visit: AMS HYPOKALEMIA HYPOGLYCEMIA Current Active Problems Altered mental status (Acute) 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, without long-term current use of insulin (Acute) Diabetes type 2, uncontrolled (Acute) Foot ulcer (Acute) Gangrene (Acute) Hypoglycemia (Acute) Hypokalemia (Acute) Normal pressure hydrocephalus (Acute) Osteomyelitis (Acute) Procedures: Principal: ANGIOPLASTY LOWER EXTREMITY Hospital Course: ADMITTED RIGHT TOE NECROTIC ULCER, DIABETIC ULCERS, NEUROPATHY, PAD S/P ANGIOPLASTY WILL NEED IV ABX FOR 6 WEEKS PICC LINE INSERTED, LIKELY WILL NEED SURGICAL DEBRIDEMENT IN FUTURE. Condition: Guarded - Instructions Diet, Activity, Other Instructions: ADA SURGICAL F/U IN 1 MONTH Referrals: Karyna Greene [Primary Care Provider] - Disposition: LONGTERM FACILITY - Home Medications Comprehensive Discharge Medication List: Ambulatory Orders Insulin (Levemir) [Levemir Flexpen -] 45 mg SQ ACBK 07/25/13
[2016-10-10] MEDS: PIPERACILLIN/TAZOB 3.375 GM/50 ML PRE-DOCKED IVPB SCH ×3 (01:59→18:00)
[2016-10-10] MEDS: INSULIN DETEMIR 100 UNITS/ML MDV SQ SCH ×2 (06:49→21:52)
[2016-10-10] MEDS: INSULIN SLIDING SCALE (NOVOLOG) 1 VIAL SQ SCH ×4 (06:49→21:53)
[2016-10-10] MEDS ORDERED: INSULIN (NOVOLOG) ASPART 100 UNITS/ML 10ML VIAL ONE (06:56)
--- NOTE | 2016-10-10 10:18 | PN ---
Progress Note, Physician Chief Complaint: LEFT TOE GANGRENE History of Present Illness: angio post op day 3 seen by vascular, now wants surgical debridement. -on plavix and aspirin - Current Medication List Current Medications: Active Medications Acetaminophen (Tylenol -) 650 mg PO Q4H PRN PRN Reason: FEVER OR PAIN Aspirin (Asa -) 81 mg PO DAILY [facility] Last Admin: 10/09/16 10:01 Dose: 81 mg Clopidogrel Bisulfate (Plavix -) 75 mg PO DAILY [facility] Last Admin: 10/09/16 10:01 Dose: 75 mg IV Flush (Picc Line Flush) 8 ml IVPUSH PRN PRN PRN Reason: Protocol Last Admin: 10/08/16 13:30 Dose: 8 ml Insulin Aspart (Novolog Vial Sliding Scale -) 1 vial SQ ACHS MARNIE PRN Reason: Protocol Last Admin: 10/10/16 06:49 Dose: 3 units Insulin Detemir (Levemir Vial) 20 units SQ HS [facility] Last Admin: 10/09/16 22:07 Dose: 20 units Insulin Detemir (Levemir Vial) 20 units SQ AM [facility] Last Admin: 10/10/16 06:49 Dose: 20 units Piperacillin Sod/Tazobactam Sod (Zosyn 3.375gm Ivpb (Pre-Docked)) 3.375 gm IVPB Q8H-IV MARNIE PRN Reason: Protocol Last Admin: 10/10/16 01:59 Dose: 3.375 gm Vancomycin HCl (Vancomycin (Pre-Docked)) 1,000 mg IVPB BID [facility] PRN Reason: Protocol Last Admin: 10/09/16 22:08 Dose: 1,000 mg - Objective Vital Signs: Vital Signs Temperature 98.3 F 10/10/16 06:00 Pulse Rate 79 10/10/16 06:00 Respiratory Rate 20 10/10/16 06:00 Blood Pressure 121/66 10/10/16 06:00 O2 Sat by Pulse Oximetry (%) 98 10/08/16 09:00 Constitutional: Yes: Well Nourished, No Distress, Calm Cardiovascular: Yes: Regular Rate and Rhythm Respiratory: Yes: Regular Gastrointestinal: Yes: Normal Bowel Sounds Extremities: Yes: Erythema (left great toe) Edema: No Peripheral Pulses WNL: Yes Peripheral Pulses: Left Doralis Pedis: 2+ Wound/Incision: Yes: Well Approximated, Dressing Removed (dry edges), Draining ( mild purulent) Neurological: Yes: Alert, Oriented Psychiatric: Yes: Alert, Oriented Labs: CBC, BMP 10/09/16 07:19 10/09/16 07:19 INR, PTT INR 1.32 (0.82-1.09) H 10/07/16 05:56 Problem List - Problems (1) Diabetes type 2, uncontrolled Assessment/Plan: -UNCONTROLLED WITH HGA1C AT 11.0 -ON INSULIN SLIDING SCALE -SEEN BY ENDOCRINOLOGY Code(s): E11.65 - TYPE 2 DIABETES MELLITUS WITH HYPERGLYCEMIA Qualifiers: Diabetes mellitus complication status: with neurologic complications (2) Foot ulcer Assessment/Plan: -LEFT BIG TOE -PAIN MANAGEMENT -GOING FOR SURGICAL DEBRIDEMENT -ABX VIA PICC LINE Code(s): L97.509 - NON-PRESSURE CHRONIC ULCER OTH PRT UNSP FOOT W UNSP SEVERITY (3) Osteomyelitis Assessment/Plan: -SEEN BY ID -IV ABX VIA PICC LINE MEDICAL ASSISTING PROGRAM DIRECTOR -PAIN MANAGEMENT Code(s): M86.9 - OSTEOMYELITIS, UNSPECIFIED Assessment/Plan -PAIN MANAGEMENT -IV ABX -SURGICAL DEBRIDEMENT TODAY -TRANSFER TO SNF ONCE STABLE ON PLAVIX AND ASPIRIN
[2016-10-10] MEDS: ASPIRIN 81 MG CHEWABLE TABLETS PO SCH (10:19)
[2016-10-10] MEDS: CLOPIDOGREL BISULFATE 75 MG TABLET (FP) PO SCH (10:19)
[2016-10-10] MEDS: VANCOMYCIN 1 GRAM (PRE-DOCKED) 1,000 MG/250 ML BAG IVPB SCH (11:13)
[2016-10-10] MEDS ORDERED: MIDAZOLAM HCL 2 MG/2 ML SINGLE DOSE VIAL ONE ×2 (18:18→18:19)
[2016-10-10] MEDS ORDERED: LIDOCAINE HCL 1%, 10 MG/ML (20ML VIAL) ONE (18:20)
[2016-10-10] MEDS ORDERED: BUPIVACAINE HCL/PF 0.5% (5MG/ML) 10 ML VIAL ONE (18:20)
[2016-10-10] MEDS ORDERED: PROPOFOL 20 ML ONE (18:25)
[2016-10-10] MEDS ORDERED: LIDOCAINE HCL 1%, 10 MG/ML (20ML VIAL) IJ ONE (18:26)
--- NOTE | 2016-10-10 18:53 | OP ---
Operative Note - Note: Operative Date: 10/10/16 Pre-Operative Diagnosis: Gangrene left 1st toe Operation: Amputation left 1st toe Findings: Necrotic subQ and bone 1st proximal phalanx Post-Operative Diagnosis: Same as Pre-op Surgeon: Johann Mayen Anesthesiologist/PRINT PRESS OPERATOR: Idalia Moncada Anesthesia: Fractional Specimens Removed: Left 1st toe Estimated Blood Loss (mls): 20
[2016-10-10] MEDS ORDERED: ACETAMINOPHEN 325 MG TABLET (FP) PO PRN ×2 (18:55→19:23)
[2016-10-10] MEDS ORDERED: ONDANSETRON 4 MG/2 ML VIAL IVPUSH PRN (19:07)
[2016-10-10] MEDS ORDERED: PICC LINE 8 ML FLUSH PROTOCOL IVPUSH PRN (19:23)
[2016-10-10] MEDS ORDERED: VANCOMYCIN 1 GRAM (PRE-DOCKED) 1,000 MG/250 ML BAG IVPB SCH (22:00)
[2016-10-11] MEDS: PIPERACILLIN/TAZOB 3.375 GM/50 ML PRE-DOCKED IVPB SCH ×5 (02:11→20:02)
[2016-10-11] MEDS: INSULIN SLIDING SCALE (NOVOLOG) 1 VIAL SQ SCH ×4 (06:12→21:25)
[2016-10-11] MEDS: INSULIN DETEMIR 100 UNITS/ML MDV SQ SCH ×2 (06:12→21:25)
--- NOTE | 2016-10-11 08:48 | PN ---
Progress Note (short form) - Note Progress Note: POD 1 No c/o Toe amputation wound with bloody drainage. Dressing changed. Instructions reviewed for limited weight bearing and follow-up. 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
[2016-10-11] MEDS: VANCOMYCIN 1,250 MG in DEXTROSE 5%-WATER - 250 ML IVPB SCH (11:33)
[2016-10-11] MEDS: CLOPIDOGREL BISULFATE 75 MG TABLET (FP) PO SCH (12:07)
[2016-10-11] MEDS: ASPIRIN 81 MG CHEWABLE TABLETS PO SCH (12:07)
--- NOTE | 2016-10-11 15:24 | PN ---
Progress Note (short form) - Note Progress Note: no complaints s/p amputation yesterday first toe Vital Signs Period Temp Pulse Resp BP Sys/Smith Pulse Ox Last 24 Hr 97.7 F-99 F 76-92 16-20 119-164/51-84 96-100 cor-rrr lungs clear abd soft,nt ext dressing intact CBC, BMP 10/09/16 07:19 10/09/16 07:19 imp/reccd osteomyelitis of big toe- s/p amputation and stent and angioplasty d/w Dr Mayen, he will require fdc iv antibiotics no cultures to guide treatment plan 6 weeks vanco/zosyn f/u esr/crp please call back if needed
--- NOTE | 2016-10-11 17:08 | PN ---
Progress Note, Physician Chief Complaint: LEFT TOE GANGRENE History of Present Illness: post op day 1 seen by vascular, -on plavix and aspirin - Current Medication List Current Medications: Active Medications Acetaminophen (Tylenol -) 650 mg PO Q4H PRN PRN Reason: FEVER OR PAIN Last Admin: 10/10/16 21:51 Dose: 650 mg Aspirin (Asa -) 81 mg PO DAILY [facility] Last Admin: 10/11/16 12:07 Dose: 81 mg Clopidogrel Bisulfate (Plavix -) 75 mg PO DAILY [facility] Last Admin: 10/11/16 12:07 Dose: 75 mg Fentanyl (Sublimaze Injection -) 25 mcg IVPUSH [id number] PRN PRN Reason: PAIN Stop: 10/13/16 19:08 IV Flush (Picc Line Flush) 8 ml IVPUSH PRN PRN PRN Reason: Protocol Vancomycin HCl 1,250 mg/ (Dextrose) 250 mls @ 125 mls/hr IVPB DAILY MARNIE PRN Reason: Protocol Last Admin: 10/11/16 11:33 Dose: 125 mls/hr Insulin Aspart (Novolog Vial Sliding Scale -) 1 vial SQ ACHS MARNIE PRN Reason: Protocol Last Admin: 10/11/16 12:07 Dose: 5 units Insulin Detemir (Levemir Vial) 20 units SQ HS [facility] Last Admin: 10/10/16 21:52 Dose: 20 units Insulin Detemir (Levemir Vial) 20 units SQ AM [facility] Last Admin: 10/11/16 06:12 Dose: 20 units Piperacillin Sod/Tazobactam Sod (Zosyn 3.375gm Ivpb (Pre-Docked)) 3.375 gm IVPB Q8H-IV MARNIE PRN Reason: Protocol Last Admin: 10/11/16 14:17 Dose: 3.375 gm - Objective Vital Signs: Vital Signs Temperature 97.9 F 10/11/16 15:43 Pulse Rate 89 10/11/16 15:43 Respiratory Rate 20 10/11/16 15:43 Blood Pressure 136/77 10/11/16 15:43 O2 Sat by Pulse Oximetry (%) 98 10/11/16 11:00 Constitutional: Yes: Well Nourished, No Distress, Calm Cardiovascular: Yes: Regular Rate and Rhythm Respiratory: Yes: Regular Extremities: Yes: Amputation Labs: CBC, BMP 10/09/16 07:19 10/09/16 07:19 INR, PTT INR 1.32 (0.82-1.09) H 10/07/16 05:56 Problem List - Problems (1) Diabetes type 2, uncontrolled Assessment/Plan: -UNCONTROLLED WITH HGA1C AT 11.0 -ON INSULIN SLIDING SCALE -SEEN BY ENDOCRINOLOGY Code(s): E11.65 - TYPE 2 DIABETES MELLITUS WITH HYPERGLYCEMIA Qualifiers: Diabetes mellitus complication status: with neurologic complications (2) Foot ulcer Assessment/Plan: -LEFT BIG TOE -PAIN MANAGEMENT -POD 1 -ABX VIA PICC LINE Code(s): L97.509 - NON-PRESSURE CHRONIC ULCER OTH PRT UNSP FOOT W UNSP SEVERITY (3) Osteomyelitis Assessment/Plan: -LEFT BIG TOE -SEEN BY ID -IV ABX VIA PICC LINE ACID CLEANER -PAIN MANAGEMENT Code(s): M86.9 - OSTEOMYELITIS, UNSPECIFIED Qualifiers: Osteomyelitis location: foot Laterality: left Assessment/Plan -PAIN MANAGEMENT -IV ABX -POD 1 -TRANSFER TO SNF ONCE STABLE ON PLAVIX AND ASPIRIN -WOUND CARE: CLEAN WITH BETADINE, APPLY XEROFORM AND APPLY DRY GAUZE DAILY
--- NOTE | 2016-10-11 17:10 | DS ---
Physical Examination Vital Signs: Vital Signs Temperature 97.9 F 10/11/16 15:43 Pulse Rate 89 10/11/16 15:43 Respiratory Rate 20 10/11/16 15:43 Blood Pressure 136/77 10/11/16 15:43 O2 Sat by Pulse Oximetry (%) 98 10/11/16 11:00 Constitutional: Yes: Well Nourished, No Distress, Calm Cardiovascular: Yes: Regular Rate and Rhythm Respiratory: Yes: Regular Extremities: Yes: Amputation (LEFT BIG TOE) Edema: No Peripheral Pulses WNL: Yes Wound/Incision: Yes: Dressing Dry and Intact Neurological: Yes: Alert, Oriented Labs: CBC, BMP 10/09/16 07:19 10/09/16 07:19 Discharge Summary Reason For Visit: AMS HYPOKALEMIA HYPOGLYCEMIA Current Active Problems Altered mental status (Acute) 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 As per EMS patient's glucose was 43 at the scene. Patient kept repeating that he was looking for his cart. EMS stated patient was seen at [facility] in [place] this afternoon for the same diagnosis and signed AMA. Patient complained for left foot pain. Patient has been a poor historian. Patient denied any headache, dizziness, lightheadedness, neck pains, back pains, chest pain, shortness of breath, abdominal pains, urinary symptoms, Pato numbness or tingling sensation. During the course of his stay he was found to have osteomyelitis of left great toe. He had angiogram done on 10/07/16 by Vascular surgery, after which he decided that he was okay with toe amputation which took place on 10/10/16 He was also seen by Infectious disease who recommended prison antibiotics. PICC line was inserted on 10/06/16. He will be going to SNF with following medications 1. Vancomycin 1250 mg IVPB daily for 6 weeks 2. Zosyn 3.375 mg IVPB Q8H for 6 weeks 3. Aspirin 81 mg po daily 4. Plavix 75 mg po daily 5. Tylenol 650 mg po Q4HPRN for pain 6. Levemir SQ 20 units in AM and 20 units HS 7. Novolog as per sliding scale: 200-299-4 units 300-399-6 units >400- 8 units and notify MD Condition: Stable - Instructions Diet, Activity, Other Instructions: Dress amputation wound with Betadine, Xeroform and dry gauze daily. Referrals: Karyna Greene [Primary Care Provider] - Johann Mayen MD [Staff Physician] - 1 Week Disposition: RESIDENTIAL FACILITY - Home Medications Comprehensive Discharge Medication List: Ambulatory Orders Insulin (Levemir) [Levemir Flexpen -] 45 mg SQ ACBK 07/25/13
[2016-10-11] MEDS ORDERED: INSULIN (NOVOLOG) ASPART 100 UNITS/ML 10ML VIAL ONE (18:09)
[2016-10-12] MEDS: PIPERACILLIN/TAZOB 3.375 GM/50 ML PRE-DOCKED IVPB SCH ×2 (02:15→10:27)
[2016-10-12] MEDS: INSULIN SLIDING SCALE (NOVOLOG) 1 VIAL SQ SCH ×2 (06:21→11:57)
[2016-10-12] MEDS: INSULIN DETEMIR 100 UNITS/ML MDV SQ SCH (06:56)
[2016-10-12] MEDS ORDERED: PT OWN MED DRAWER 7, Y5N ONE (10:23)
[2016-10-12 10:24] VITALS: BP 102/68; PULSE 88
[2016-10-12 10:26] VITALS: TEMP 97.7
[2016-10-12] MEDS: ASPIRIN 81 MG CHEWABLE TABLETS PO SCH (10:27)
[2016-10-12] MEDS: CLOPIDOGREL BISULFATE 75 MG TABLET (FP) PO SCH (10:27)
[2016-10-12] MEDS: VANCOMYCIN 1,250 MG in DEXTROSE 5%-WATER - 250 ML IVPB SCH (11:59)
[2016-10-12] MEDS ORDERED: INSULIN (NOVOLOG) ASPART 100 UNITS/ML 10ML VIAL ONE (12:53)
--- NOTE | 2016-10-13 09:15 | PATH ---
Surgical Pathology Report Patient Name: YOLIE RENTERIA [facility]. Rec. #: [id number] /Age/Gender: 1955 (Age: 61) / M Account: [id number] Location: [address] [place] [address]/[facility] Taken: 10/10/2016 Received: 10/11/2016 Reported: 10/13/2016 Physicians: Johann Mayen M.D. Specimen(s) Received LEFT 1ST TOE Clinical History Gangrene left first toe Final Diagnosis LEFT FIRST TOE, AMPUTATION: GANGRENOUS NECROSIS WITH ACUTE OSTEOMYELITIS. GANGRENOUS NECROSIS IS PRESENT IN SEPARATELY RECEIVED FRAGMENTS OF SOFT TISSUE. OSTEOMYELITIS EXTENDS TO BONE MARGIN. Electronically Signed Meño Gonzalez M.D. Gross Description Received in formalin labeled "left first toe," is a 5.2 x 2.7 x 2.5 cm toe amputation specimen. The epidermal surface displays a 3.7 x 3.1 cm gangrenous, ulcerated lesion on the volar surface. The lesion focally abuts the skin and soft tissue margin. The lesion involves the underlying bone and appears to involve the bone margin. Separately received within the same container is a 3.0 x 2.4 x 0.7 cm aggregate of undesignated soft tissue fragments. Component Assembler Supervisor sections are submitted in 4 cassettes as follows: 1-lesion with underlying bone, following decalcification; 2-skin and soft tissue margin; 3-bone margin, following decalcification; 4-separately received soft tissue fragments. /10/11/201610/11/2016
--- NOTE | 2016-10-18 21:37 | PN ---
Progress Note (short form) - Note Progress Note: addendum: patient developed metabolic encephalopathy with infection to lower extremity. 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
== END 2016-10-12 13:13 | DRG 173 ==
LOC: JER 20:04 → JERBED 09-30 00:19 → UNDOADMIN 09-30 00:45 → J5S 09-30 15:17
PROVIDERS: ADMIT Family Medicine; ATTEND Family Medicine
PROC: 02HV33Z Insertion of Infusion Device into Superior Vena Cava, Percutaneous Approach (ICD-10-PCS; 2016-10-06)
PROC: B518YZA Fluoroscopy of Superior Vena Cava using Other Contrast, Guidance (ICD-10-PCS; 2016-10-06)
PROC: 0JBR0ZZ Excision of Left Foot Subcutaneous Tissue and Fascia, Open Approach (ICD-10-PCS; 2016-10-07)
PROC: 047L34Z Dilation of Left Femoral Artery with Drug-eluting Intraluminal Device, Percutaneous Approach (ICD-10-PCS; 2016-10-07)
PROC: 047L34Z Dilation of Left Femoral Artery with Drug-eluting Intraluminal Device, Percutaneous Approach (ICD-10-PCS; 2016-10-07)
PROC: 047N34Z Dilation of Left Popliteal Artery with Drug-eluting Intraluminal Device, Percutaneous Approach (ICD-10-PCS; 2016-10-07)
PROC: 047U3ZZ Dilation of Left Peroneal Artery, Percutaneous Approach (ICD-10-PCS; 2016-10-07)
PROC: 0HBNXZZ Excision of Left Foot Skin, External Approach (ICD-10-PCS; 2016-10-07)
PROC: B41JYZZ Fluoroscopy of Other Lower Arteries using Other Contrast (ICD-10-PCS; 2016-10-07)
PROC: 0Y6Q0Z0 Detachment at Left 1st Toe, Complete, Open Approach (ICD-10-PCS; principal; 2016-10-10 15:30)
DX: E08.52 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 with gangrene (principal); L97.529 Non-pressure chronic ulcer of other part of left foot with unspecified severity; E11.69 Type 2 diabetes mellitus with other specified complication; E11.621 Type 2 diabetes mellitus with foot ulcer; M86.172 Other acute osteomyelitis, left ankle and foot; E11.65 Type 2 diabetes mellitus with hyperglycemia; R41.82 Altered mental status, unspecified; E87.6 Hypokalemia; G91.2 (Idiopathic) normal pressure hydrocephalus; G92 Toxic encephalopathy; E11.649 Type 2 diabetes mellitus with hypoglycemia without coma; I70.202 Unspecified atherosclerosis of native arteries of extremities, left leg; I70.92 Chronic total occlusion of artery of the extremities
CPT/HCPCS: 36415; 36569; 70450-TC; 70551-TC; 71010-TC; 73630-TC-LT; 73718-LT; 75635-TC; 76000-TC; 77001-TC; 80048; 80053; 80061; 81003; 81015; 82550; 83036; 83721; 83735; 83880; 84443; 84484; 85025; 85027; 85610; 85651; 86140; 86850; 86900; 86901; 87040; 88304-TC; 88305-TC; 88311-TC; 93005; 93010; 93923; 93925-TC; 93971-TC; 94760; 97116-GP; 97161-GP; 99285-25; C1751; G0480; J1644